=== PATIENT | female | born 1945 | race Caucasian/White ===

== ENCOUNTER 2021-06-29 07:59 | Outpatient (CLI) | payer MEDICARE, SELFPAY ==
--- NOTE | ~2021-06-29 | CT_ITS ---
EXAMINATION: CT abdomen wo/w con DATE: 06/29/2021 08:42 INDICATION: Renal mass TECHNIQUE: Computed tomography (CT) of the abdomen and pelvis was performed without and with 100 mL O mnipaque-350 intravenous contrast. Automated exposure control and iterative reconstruction technique were employed. The dose-length product was 747.18 mGy-cm. COMPARISON: 10/01/2019 FINDINGS: Multiple scattered calcified nodules in the bilateral lower lungs, the liver and spleen along with ca lcified bilateral hilar and mediastinal lymph nodes, all consistent with old granulomatous disease. H eart size is normal. No pericardial or pleural effusion. Small sliding-type hiatal hernia. Cholecyste ctomy clips the gallbladder fossa. Diffuse hepatic steatosis. Mild fatty infiltration of the pancreas . Bilateral adrenal glands are normal. Air-fluid level within a small duodenal diverticulum arising f rom the second portion of the duodenum. No interval change in a 1.3 cm heterogeneously enhancing mixe d solid and cystic mass arising from the anterior interpolar region of the left kidney consistent wit h renal cell carcinoma. No significant change in a couple 9 mm likely cysts at the upper pole of the left kidney, the more cephalad with decreased attenuation evident on the precontrast imaging and the more caudal isodense to the kidney most likely a proteinaceous/hemorrhagic cyst. Definitive assessmen t of attenuation and thereby enhancement is however limited by the small size of lesions as well as a small amount of streak and motion artifact. Visualized portions of the bowels including a portion of the appendix are normal. No pathologically enlarged abdominal lymphadenopathy. Normal caliber abdomi nal aorta with small amount of scattered atherosclerotic calcification. Mild thoracolumbar spondylosi s. IMPRESSION: 1. No interval change in a 1.3 cm enhancing left renal mass consistent with renal cell carcinoma. No evident metastatic disease. 2. Small sliding-type hiatal hernia. 3. Diffuse hepatic steatosis. Reviewed, dictated and finalized at location A. IMPRESSION: 1. No interval change in a 1.3 cm enhancing left renal mass consistent with miki al cell carcinoma. No evident metastatic disease. 2. Small sliding-type hiatal hernia. 3. Diffuse hepatic steatosis.
[2021-06-29 08:31] LABS: Estimated Glomerular Filt Rate 54
[2021-06-29 09:40] LABS: Estimated Glomerular Filt Rate 54
== END 2021-06-29 08:00 | disposition home or self-care (01) ==
LOC: ANHIMG 08:03
PROVIDERS: PCP Internal Medicine; Visit Provider Urology
DX: N28.89 Other specified disorders of kidney and ureter (principal); K44.9 Diaphragmatic hernia without obstruction or gangrene; K76.0 Fatty (change of) liver, not elsewhere classified
CPT/HCPCS: 74170; Q9967

== ENCOUNTER → 2022-08-29 12:42 | Outpatient (CLI) | payer MEDICARE, SELFPAY ==
--- NOTE | ~2022-08-29 | MM_ITS ---
EXAMINATION: MM screening mary BI w cherise HISTORY: Screening TECHNIQUE: Craniocaudal and mediolateral oblique 3-D tomosynthesis images were obtained and synthetic 2-D images were generated. CAD analysis was submitted and interpreted. COMPARISON: No prior mammogram is available for comparison at this institution. BREAST PARENCHYMAL COMPOSITION: Breast composed of scattered areas of fibroglandular density FINDINGS: There is a right breast mass in the upper outer quadrant posteriorly near the pectoralis mu scle. There is a focal asymmetry laterally in the left breast on CC view. There are no suspicious ricardo cifications or architectural distortion. IMPRESSION: 1. Right breast mass, upper outer quadrant posteriorly and left breast asymmetry laterally on CC view . 2. Recommend comparison to previous outside mammograms. BI-RADS Category 0: Incomplete: Needs additional imaging evaluation. Reviewed, dictated and finalized at location A. IMPRESSION: 1. Right breast mass, upper outer quadrant posteriorly and left breast asymmetr y laterally on CC view. 2. Recommend comparison to previous outside mammograms. BI-RADS Category 0: Incomplete: Needs additional imaging evaluation.
== END ==
PROVIDERS: PCP Internal Medicine; Visit Provider Internal Medicine
DX: Z12.31 Encounter for screening mammogram for malignant neoplasm of breast (principal); R92.8 Other abnormal and inconclusive findings on diagnostic imaging of breast
CPT/HCPCS: 77063; 77067

== ENCOUNTER → 2022-09-19 09:54 | Outpatient (CLI) | payer MEDICARE, SELFPAY ==
--- NOTE | ~2022-09-19 | DEXA_ITS ---
Bone Density Report Name: MISSY THOMAS Age: 76 Sex: Female Ethnicity: White Date of : 1945 Indication: postmenopausal; screening for osteoporosis; parental hip fracture; hysterectomy; rheumatoid arthritis; secondary osteoporosis; Referring Provider: ANUEL, LUIS May Study: Bone densitometry was performed. Exam Date: September 19, 2022 Accession number: [id number] Bone Density: Region BMD T-score Z-score Classification AP Spine (L1-L4) 0.840 -1.9 0.7 Osteopenia Femoral Neck (Left) 0.555 -2.6 -0.4 Osteoporosis Total Hip (Left) 0.746 -1.6 0.4 Osteopenia Femoral Neck (Right) 0.545 -2.7 -0.5 Osteoporosis Total Hip (Right) 0.720 -1.8 0.2 Osteopenia Total Hip Mean 0.733 -1.7 0.3 Osteopenia World Health Organization criteria for BMD impression classify patients as: Normal (T-score at or above -1.0), Osteopenia (T-score between -1.0 and -2.5), or Osteoporosis (T-score at or below -2.5). 10-year Fracture Risk: FRAX not reported because: Some T-score for Spine Total or Hip Total or Femoral Neck at or below -2.5 Clinical Information Provided by Patient: Parent has had a hip fracture Has rheumatoid arthritis Has secondary osteoporosis Has used the following medications: Vitamin D Has the following medical conditions: Hysterectomy Patient maximum height was 59.7 Menopause Age: 35 No regular weight bearing exercise Drinks caffeinated beverages Onset of menses at age 10 Number of children 1 Impression: The patient has osteoporosis, based on the Right Femoral Neck T-score. The patient has risk factors, including: parental hip fracture. Discussion: INCREASED RISK OF FRACTURE. BONE DENSITY IS UNDESIRABLY LOW AT ONE OR MORE SKELETAL SITES, CONSISTENT WITH POSTMENOPAUSAL OSTEOPOROSIS. This patient's lowest T-score meets the World Health Organization's (WHO) criteria for osteoporosis at one or more sites (T-score -2.5 or below). In untreated patients, the risk of osteoporotic fracture increases approximately two-fold for each 1.0 SD decrease in T-score. Low bone density is not the only risk factor for fracture; also consider factors such as patient's age, frailty or poor health, risk of falling, risk of injury, previous osteoporotic fracture, family history of osteoporosis, cigarette smoking, low body weight, etc. Not everyone with low bone mineral density has osteoporosis; osteomalacia and other metabolic bone disorders should also be considered. Patients who have osteoporosis should be evaluated for specific diseases and conditions (secondary causes) that may cause or contribute to bone loss. The [place] Association of Clinical Endocrinologists (AACE) and National Osteoporosis Foundation (NOF) recommend pharmacologic intervention for all postmenopausal women whose T-score is in this range. The patient should follow
== END ==
PROVIDERS: PCP Internal Medicine; Visit Provider Internal Medicine
DX: Z78.0 Asymptomatic menopausal state (principal); M85.89 Other specified disorders of bone density and structure, multiple sites; M81.6 Localized osteoporosis [Lequesne]
CPT/HCPCS: 77080

== ENCOUNTER 2023-09-03 06:36 | Day surgery (SDC) | payer MEDICARE, SELFPAY ==
[2023-08-14 14:01] VITALS: BMI 30.3
[2023-08-15 11:10] VITALS: BMI 64.5
--- NOTE | 2023-09-03 06:51 | WPDANESEPPF ---
Anes - Initial Pre Proc Eval Procedure: Operation Date: 09/03/23 08:30 Proposed Procedures p Neoplasm Screening Colonoscopy - Ghassan Bonilla MD Date/Time: 09/03/23 06:51 Surgeon: Ghassan Bonilla MD Pre Op Diagnosis: Z12.11 Screening Neoplasm of Colon Patient Data Age: 77 Gender: F Height: 1.52 m Weight: 150 kg Allergies Allergy/AdvReac Type Severity Reaction Status Date / Time No Known Allergies Allergy Verified 09/03/23 07:03 Home Medications Medication Instructions Recorded Confirmed Type cyclobenzaprine 10 mg tablet 10 mg PO BID 08/15/23 09/03/23 History ergocalciferol (vitamin D2) 1,250 1 unit PO WEEKLY 08/15/23 09/03/23 History mcg (50,000 unit) capsule ferrous sulfate 325 mg (65 mg 325 mg PO BID 08/15/23 09/03/23 History iron) tablet (FeroSul) gabapentin 300 mg capsule 300 mg PO TID 08/15/23 09/03/23 History naproxen 500 mg tablet 500 mg PO DAILY 08/15/23 09/03/23 History tramadol 50 mg tablet 50 mg PO BID 08/15/23 09/03/23 History Patient hx anesthesia problems: none Family hx anesthesia problems: none Results Review: All pre-operative results and documents have been reviewed as part of the pre-operative evaluation. [facility] Surgical History Surgical History (Updated 09/03/23 @ 06:52 by Chuy Yip DO) History of History of cholecystectomy History of hysterectomy History of neck surgery History of tonsillectomy Social History Social History Living arrangements: with family Spiritual care concerns: No Anes - Eval Final PreProcedure Day of Procedure 09/03/23 06:51 Patient weight: overweight Heart: regular rate and rhythm Lungs: clear to auscultation Airway: Mallampati scale class II Neurological: alert and oriented Last oral intake: >/= 8 hours ASA classification: II Emergent: no Anesthetic plan: proceed Anesthesia type and monitoring: general GIVS and standard monitoring Results Review: All pre-operative results and documents have been reviewed as part of the pre-operative evaluation. Informed Consent: The patient's anesthetic plan and its attendant risks and benefits were discussed with the patient/family/POA. Questions were solicited and answers provided to the satisfaction of the patient/family/POA.
[2023-09-03 07:00] VITALS: BP 144/77; PULSE 91; RESP 20; TEMP 36.5; O2SAT 100
[2023-09-03] MEDS: LACTATED RINGERS 1,000 ML 150 ML IV CONT (07:20)
[2023-09-03 08:28] VITALS: BP 131/62; PULSE 89; RESP 18; O2SAT 100
[2023-09-03 08:38] VITALS: BP 137/73; PULSE 81; RESP 17; O2SAT 100
[2023-09-03 08:48] VITALS: BP 130/67; PULSE 78; RESP 16; O2SAT 99
--- NOTE | 2023-09-03 13:46 | WPDANESPN ---
Anes - Prog Note Post-Op Date/Time: 09/03/23 13:46 Cardiovascular status: normal Respiratory status: normal Airway patency: baseline Mental status: baseline Post-Op hydration status: normal Vital Signs: Last Vital Signs Temp 36.5 C 09/03/23 07:00 Pulse 78 09/03/23 08:48 Resp 16 09/03/23 08:48 BP 130/67 09/03/23 08:48 Pulse Ox 99 09/03/23 08:48 O2 Del Method Room Air 09/03/23 08:48 Pain Score (VAS): 0 I/O: Intake & Output 09/02/23 09/03/23 09/03/23 23:59 07:59 15:59 Intake Total 900 Balance 900 Post-procedural complaints: none Patient Feedback: Patient satisfied with anesthetic care. Other Findings: Patient vital signs back to baseline. Patient denies nausea and vomiting. Patient's pain under control. Patient OK for discharge.
--- NOTE | 2023-09-17 14:56 | PM.HPGS ---
History of Present Illness History of Present Illness Consent: Risks, benefits, and alternatives have been discussed and questions answered. Patient agrees to proceed with procedure. Chief complaint: Z12.11 Screening Neoplasm of Colon Narrative: Niya Hodgson is a 77 year old female referred for colon cancer screening. Review of Systems Review of Systems: All systems reviewed & are unremarkable except as noted in HPI and below PMFSH Surgical History Surgical History History of History of cholecystectomy History of hysterectomy History of neck surgery History of tonsillectomy Social History Social History Living arrangements: with family Spiritual care concerns: No Meds Home Medications and Allergies Home Medications Medication Instructions Recorded Confirmed Type cyclobenzaprine 10 mg tablet 10 mg PO BID 08/15/23 09/03/23 History ergocalciferol (vitamin D2) 1,250 1 unit PO WEEKLY 08/15/23 09/03/23 History mcg (50,000 unit) capsule ferrous sulfate 325 mg (65 mg 325 mg PO BID 08/15/23 09/03/23 History iron) tablet (FeroSul) gabapentin 300 mg capsule 300 mg PO TID 08/15/23 09/03/23 History naproxen 500 mg tablet 500 mg PO DAILY 08/15/23 09/03/23 History tramadol 50 mg tablet 50 mg PO BID 08/15/23 09/03/23 History Allergies Allergy/AdvReac Type Severity Reaction Status Date / Time No Known Allergies Allergy Verified 09/03/23 07:03 Exam Const: General: alert Orientation/consciousness: patient oriented x3 Resp: Auscultation: clear to auscultation bilaterally Cardio: Rhythm: regular rhythm GI: GI Palp: Yes Soft to palpation and No Tenderness to palpation present (GI) Neuro: General: patient oriented x3 Assessment and Plan Assessment and plan (1) Colon cancer screening: Code(s): Z12.11 - Encounter for screening for malignant neoplasm of colon Status: Acute Assessment and Plan: Colonoscopy with possible biopsy or polypectomy or cautery or injection of substances.
== END 2023-09-03 09:07 | disposition home or self-care (01) ==
PROVIDERS: PCP Internal Medicine; Visit Provider Internal Medicine Gastroenterology
PROC: 0DJD8ZZ Inspection of Lower Intestinal Tract, Via Natural or Artificial Opening Endoscopic (ICD-10-PCS; CPT 45378; principal; 2023-09-03 08:30)
DX: Z12.11 Encounter for screening for malignant neoplasm of colon (principal); K57.30 Diverticulosis of large intestine without perforation or abscess without bleeding; K64.8 Other hemorrhoids
CPT/HCPCS: 45378

== ENCOUNTER 2023-11-28 07:05 | Outpatient (CLI) | payer MEDICARE, SELFPAY ==
--- NOTE | ~2023-11-28 | CT_ITS ---
EXAMINATION: CT abdomen wo/w con DATE: 11/28/2023 08:01 INDICATION: Renal mass TECHNIQUE: Computed tomography (CT) of the abdomen was performed without and subsequently with 100 CC Omnipaque 350 intravenous contrast. Automated exposure control and iterative reconstruction techniqu e were employed. Exam dose: 449.25 mGy-cm total exam DLP. COMPARISON: 06/29/2021 CT abdomen without and with IV contrast material 09/2019 CT abdomen without and with IV contrast material FINDINGS: There is interval enlargement of the heterogeneously enhancing anterior lower pole left miki al mass, currently measuring up to 1.9 cm compared to approximately 1.5 cm previously. This is most l ikely left renal cell carcinoma. There are 2 stable upper pole right renal probable cysts, one likely proteinaceous or hemorrhagic. There is an indeterminate approximately approximately 4.5 mm hypoenhancing lesion at the anterior asp ect of the mid right kidney, increased from 2.5 mm dimension on 06/29/2021 too small to definitively ch aracterize. This may be a small cyst. Consider MRI renal examination or follow-up CT imaging as clini sanna appropriate. Multiple bilateral calcified pulmonary granulomas and bilateral calcified hilar and mediastinal lymph nodes, consistent with old pulmonary granulomatous disease. No infiltrate or consolidation is noted in the lower lung zones. Normal heart size. No pericardial or pleural effusion. Small sliding hiatal hernia. Status post cholecystectomy. Diffuse hepatic steatosis. No hepatic, splenic, pancreatic or adrenal sp phoenix-occupying mass lesion. There is atherosclerotic calcification but normal caliber of the abdominal aorta. No intraperitoneal or retroperitoneal mass lesion or adenopathy or ascites is noted than previously reported renal mass lesions. There is a prominent amount of fecal material throughout the included:. No bowel obstruction or intra peritoneal free air is detected. No suspicious osteolytic or osteoblastic lesions. IMPRESSION: Mild interval enlargement of left renal mass lesion, most likely renal cell carcinoma Mild interval enlargement of hypoattenuating lesion of right kidney, measuring 4.5 mm compared to 2.5 mm on 06/29/2021, too small to definitively characterize. This may be a small cyst. Consider follow-up CT imaging or MR as appropriate clinically. Reviewed, dictated and finalized at Location A. Reviewed, dictated and finalized at location B. 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 This may be a small cyst. Consider follow-up CT imaging or MR as appropriate cl inically.
[2023-11-28 07:54] LABS: Estimated Glomerular Filt Rate 53
== END 2023-11-28 07:06 | disposition home or self-care (01) ==
LOC: ANHIMG 07:14
PROVIDERS: PCP Internal Medicine; Visit Provider Urology
DX: N28.89 Other specified disorders of kidney and ureter (principal)
CPT/HCPCS: 74170; Q9967

== ENCOUNTER 2024-02-01 06:49 | Emergency (ER) | payer MEDICARE, SELFPAY ==
--- NOTE | ~2024-02-01 | CT_ITS ---
EXAMINATION: CT abdomen pelvis w con DATE: 02/01/2024 08:26 INDICATION: Left upper quadrant abdominal pain. TECHNIQUE: Computed tomography (CT) of the abdomen and pelvis was performed with 100 mL Omnipaque 350 intravenous contrast. Automated exposure control and iterative reconstruction technique were employe d. The dose-length product was 562.24 mGy-cm. COMPARISON: CT abdomen 11/28/2023 FINDINGS: Calcified pulmonary nodules and calcified hilar lymph nodes are consistent with old granulo matous disease. There is mild atelectasis bilaterally. No pleural effusion. The heart size is normal. No pericardial effusion. There is a small sliding hiatal hernia. The liver is normal. Calcifications in the spleen are consistent with old granulomatous disease. The pancreas and adrenal glands are nor mal. There are cysts in the kidneys measuring up to 6 mm on the right. There are changes of ablation of anterolateral left kidney. There is a small volume of hematoma in the left retroperitoneum. There is gas in the bladder lumen, likely from recent instrumentation. There is diverticulosis of the colon without evidence of diverticulitis. There are no dilated loops of bowel. The appendix is normal. The re is calcified atherosclerosis of the aorta and many of the other arteries. There are no pathologica lly enlarged lymph nodes. There is no free intraperitoneal fluid. There is mild thoracic and lumbar s pondylosis. IMPRESSION: 1. Ablation involving anterolateral left kidney. Small volume of hematoma in left retroperitoneum. Reviewed, dictated and finalized at location A. IMPRESSION: 1. Ablation involving anterolateral left kidney. Small volume of hematoma in le ft retroperitoneum.
--- NOTE | ~2024-02-01 | XR_ITS ---
EXAMINATION: XR chest 2V DATE: 02/01/2024 07:30 INDICATION: Generalized weakness. Nausea. Constipation. TECHNIQUE: Frontal and lateral views of the chest were obtained. COMPARISON: CT abdomen and pelvis 11/28/2023 FINDINGS: The lung volumes are small. There is mild atelectasis at right lung base. Calcified right l anali nodules and calcified right hilar lymph nodes are consistent with old granulomatous disease. No p leural effusion or pneumothorax. The heart size is normal. There are changes of cholecystectomy. IMPRESSION: 1. Small lung volumes with mild atelectasis at right lung base. Reviewed, dictated and finalized at location A.
[2024-02-01 06:51] VITALS: BP 151/72; PULSE 81; RESP 15; TEMP 35.8; O2SAT 99
--- NOTE | 2024-02-01 06:58 | ECG_ITS ---
Measurements Intervals [place] Rate: 79 P: 45 MS: 133 QRS: 8 QRSD: 86 T: 65 QT: 373 QTc: 429 Interpretive Statements SINUS RHYTHM LOW-VOLTAGE NONSPECIFIC ST & T-WAVE ABNORMALITY BORDERLINE ECG NO PREVIOUS ECG AVAILABLE FOR COMPARISON Electronically Signed On 02-01-2024 7:49:40 CDT by Isaac Forbes M.D.
[2024-02-01 07:00] VITALS: BP 151/73; PULSE 81; RESP 16; O2SAT 98
[2024-02-01 07:11] LABS: Basophils Percent Auto 0.4 % (0.2-1.2); Eosinophils Absolute Auto 0.2 K/mm3 (0-0.3); Eosinophils Percent Auto 3.9 % (0-4.4); Hemoglobin 11.6 g/dL (12.0-15.0); Immature Granulocyte Absolute 0.02 K/mm3 (0.00-0.031); Immature Granulocyte Percent A 0.4 % (0-0.5); Mean Corpuscular HGB Conc 32.2 g/dl (32-36); Mean Corpuscular Hemoglobin 30.1 pg (26-34); Mean Corpuscular Volume 93.3 fl (80-100); Mean Platelet Volume 10.2 fl (7.4-10.4); Monocytes Absolute Auto 0.6 K/mm3 (0.1-0.6); Monocytes Percent Auto 13.9 % (2.6-8.5); Neutrophils Absolute Auto 3.2 K/mm3 (1.3-6.7); Neutrophils Percent Auto 68.4 % (45.5-73.1); Platelet Count Result 153 k/mm3 (150-375); Red Blood Count 3.86 M/mm3 (4.2-5.4); Red Cell Distribution Width 12.9 % (11.5-14.5); White Blood Count 4.6 K/mm3 (4.5-10.0)
--- NOTE | 2024-02-01 07:22 | ED.GENADULT ---
HPI - General Adult General Chief complaint: Weakness Stated complaint: weakness Time Seen by Provider: 02/01/24 06:55 History of Present Illness HPI narrative: 78-year-old female presenting to the emergency department for evaluation for increased falls, increased generalized weakness and some abdominal discomfort. Patient states that she had her 1st fall on Sunday. Patient did have a renal biopsy done at [facility] and reports that even after the procedure she has had multiple falls. Patient denies striking head denies loss consciousness. Patient denies any pain or injury from the falls. Patient does complain decreased p.o. intake nausea without vomiting and decreased bowel movements. Related Data Home Medications Medication Instructions Recorded Confirmed cyclobenzaprine 10 mg tablet 10 mg PO BID 08/15/23 09/03/23 ergocalciferol (vitamin D2) 1,250 1 unit PO WEEKLY 08/15/23 09/03/23 mcg (50,000 unit) capsule ferrous sulfate 325 mg (65 mg 325 mg PO BID 08/15/23 09/03/23 iron) tablet (FeroSul) gabapentin 300 mg capsule 300 mg PO TID 08/15/23 09/03/23 naproxen 500 mg tablet 500 mg PO DAILY 08/15/23 09/03/23 tramadol 50 mg tablet 50 mg PO BID 08/15/23 09/03/23 Allergies Allergy/AdvReac Type Severity Reaction Status Date / Time No Known Allergies Allergy Verified 09/03/23 07:03 Review of Systems Review of Systems: All systems reviewed & are unremarkable except as noted in HPI and below PMFSH Surgical History Surgical History History of History of cholecystectomy History of hysterectomy History of neck surgery History of tonsillectomy Social History Social History Living arrangements: with family Spiritual care concerns: No Exam Narrative: APPEARANCE: Well appearing, no pain, no distress, well-nourished. HEAD: normocephalic, atraumatic. EYES: PERRLA/EOMI, conjunctivae clear. NOSE: Normal no drainage NECK: Supple. No adenopathy, no masses. RESPIRATORY: Airway patent, respirations nonlabored. Clear to auscultation bilaterally, no rales, rhonchi, wheezing. CARDIOVASCULAR: Regular rate and rhythm without murmurs rubs or gallops. ABDOMINAL: diffuse abdominal tenderness to palpation MUSCULOSKELETAL: Moves all extremities. Strength/ROM intact, No edema, No calf tenderness. NEURO: Alert. Cranial nerves II through XII intact. Grossly intact SKIN: Warm, dry. Normal Color Course Course Emergency Course: patient was discharged to home with outpatient follow-up. Vital Signs Vital signs: Vital Signs Temperature 96.5 F L 02/01/24 06:51 Pulse Rate 81 02/01/24 06:51 Respiratory Rate 15 02/01/24 06:51 Blood Pressure 151/72 H 02/01/24 06:51 Pulse Oximetry 99 02/01/24 06:51 Oxygen Delivery Room Air 02/01/24 06:51 Temperature 96.5 F L 02/01/24 06:51 Pulse Rate 80 02/01/24 10:45 Respiratory Rate 16 02/01/24 10:45 Blood Pressure 170/60 H 02/01/24 10:45 Pulse Oximetry 98 02/01/24 10:45 Oxygen Delivery Room Air 02/01/24 06:51 Medical Decision Making [facility] Narrative Medical decision making narrative: 78-year-old female presenting to the emergency department for evaluation for increased generalized weakness, frequent falls and abdominal discomfort. Patient was ordered IV fluids, IV Zofran. Patient declined any medications for pain control. Labs CT were also ordered. Patient reports he does feel improved with treatment. Patient is afebrile with no leukocytosis and a stable hemoglobin at 11.6. No acute abnormalities on the patient's CMP. Patient did have some ketones in her urine but no underlying evidence infection and patient was negative for influenza RSV and for COVID. Chest x-ray showed atelectasis and CT scan did show postop changes with no other acute abnormalities. Differential Diagnosis Differential Diagnosis: postop com
[2024-02-01 07:23] LABS: Alanine Aminotransferase 39 U/L (6-35); Albumin Level 3.5 g/dL (3.5-5.1); Alkaline Phosphatase 63 U/L (38-126); Anion Gap 2 mmol/L (4-12); Aspartate Amino Transferase 38 U/L (14-36); Bilirubin,Total 1.7 mg/dL (0.2-1.3); Blood Urea Nitrogen 12 mg/dL (7-17); Calcium 8.7 mg/dL (8.4-10.2); Carbon Dioxide 29 mmol/L (22-30); Chloride 105 mmol/L (98-107); Estimated CRCL calculation 41 ml/min; Estimated Glomerular Filt Rate > 60; Glucose 99 mg/dL (65-110); Potassium 3.5 mmol/L (3.4-5.0); Sodium 136 mmol/L (137-145)
[2024-02-01 08:00] VITALS: BP 156/83; PULSE 80; RESP 16; O2SAT 99
[2024-02-01 08:08] LABS: Appearance Urine Clear (Clear); Bacteria Urine None Seen /hpf; Bilirubin Urine Negative (Negative); Blood Urine 2+ (Negative); Color Urine Yellow (Yellow); Glucose Urine UA Negative (Negative); Ketones Urine 1+ mg/dL (Negative); Leukocyte Esterase Ur Negative LEU/UL (Negative); Nitrate Urine Negative (Negative); Non Pathogenic Casts 0-2; Protein Urine Negative (Negative); Specific Grav Ur 1.007 (1.001-1.035); Squamous Epithelial Cell Urine None Seen /hpf (Few); WBC Urine 0-5 /hpf (0-3)
[2024-02-01] MEDS: SODIUM CHLORIDE 0.9% IV 1,000 ML 999 ML IV CONT (08:10)
[2024-02-01 08:35] LABS: Influenza A QL RT-PCR Negative (Negative); Influenza B QL RT-PCR Negative (Negative); RSV RNA, RT-PCR Negative (Negative); SARS-CoV-2 RNA PCR Negative (Negative)
[2024-02-01 08:38] LABS: Add Urine Microscopic? YES
[2024-02-01 09:00] VITALS: BP 182/75; PULSE 100; RESP 14; O2SAT 100
[2024-02-01] MEDS: MORPHINE SULFATE (*CRX) 2 MG/ML INJ IV PUSH (09:24)
[2024-02-01 10:00] VITALS: BP 175/67; PULSE 89; RESP 14; O2SAT 97
[2024-02-01 10:45] VITALS: BP 170/60; PULSE 80; RESP 16; O2SAT 98
== END 2024-02-01 10:45 | disposition home or self-care (01) ==
PROVIDERS: Emergency Medicine; Emergency Provider Emergency Medicine; PCP Internal Medicine
DX: R53.1 Weakness (principal); W19.XXXA Unspecified fall, initial encounter; Z91.81 History of falling; Z20.822 Contact with and (suspected) exposure to COVID-19
CPT/HCPCS: 36415; 71046; 74177; 80053; 81001; 85025; 87637; 93005; 96361; 96374; 99284; J2270; J7030; Q9967

== ENCOUNTER 2024-02-11 09:10 | Emergency (ER) | payer MEDICARE, SELFPAY ==
--- NOTE | ~2024-02-11 | XR_ITS ---
Left Shoulder Technique: AP and scapular Y views were obtained. Clinical History: Pain Findings: No fracture or dislocation is seen. Osseous alignment is anatomic. The glenohumeral and acr omioclavicular joint spaces are preserved. Soft tissues are unremarkable. Impression: Unremarkable left shoulder radiographs. Reviewed, dictated and finalized at [facility]. Impression: Unremarkable left shoulder radiographs.
[2024-02-11 09:25] VITALS: BP 140/100; PULSE 84; RESP 16; TEMP 36.2; O2SAT 98
--- NOTE | 2024-02-11 09:32 | ECG_ITS ---
SEE SCANNED COPY FOR CONFIRMED REPORT MTDD
--- NOTE | 2024-02-11 10:44 | ED.EXTPRO ---
HPI - Extremity Problem General Chief complaint: Extremity Problem,Nontraumatic Stated complaint: left upper arm pain Time Seen by Provider: 02/11/24 09:33 Source: patient Mode of arrival: ambulatory Limitations: no limitations History of Present Illness HPI Narrative: Patient is an 78-year-old female who presents the ED with report of left shoulder and left-sided neck pain. Patient reports pain has been constant for the last 4 days, worse with movement of her arm. She denies any recent injury or fall. She has been taking Tylenol, naproxen, tramadol without much relief. States she has lost sleep over the pain. Denies CP, SOB. Denies numbness/tingling. Related Data Home Medications Medication Instructions Recorded Confirmed cyclobenzaprine 10 mg tablet 10 mg PO BID 08/15/23 09/03/23 ergocalciferol (vitamin D2) 1,250 1 unit PO WEEKLY 08/15/23 09/03/23 mcg (50,000 unit) capsule ferrous sulfate 325 mg (65 mg 325 mg PO BID 08/15/23 09/03/23 iron) tablet (FeroSul) gabapentin 300 mg capsule 300 mg PO TID 08/15/23 09/03/23 naproxen 500 mg tablet 500 mg PO DAILY 08/15/23 09/03/23 tramadol 50 mg tablet 50 mg PO BID 08/15/23 09/03/23 Allergies Allergy/AdvReac Type Severity Reaction Status Date / Time No Known Allergies Allergy Verified 02/11/24 09:28 Review of Systems Review of Systems: CONSTITUTIONAL: Denies fever, chills, or sweats. CARDIOVASCULAR: Denies chest pain RESPIRATORY: Denies dyspnea. GASTROINTESTINAL: Denies abdominal pain, nausea, vomiting. MUSCULOSKELETAL: See HPI. NEUROLOGIC: Denies headache, dizziness, numbness, or weakness. All systems reviewed & are unremarkable except as noted in HPI and below PMFSH Surgical History Surgical History History of History of cholecystectomy History of hysterectomy History of neck surgery History of tonsillectomy Social History Social History Living arrangements: with family Spiritual care concerns: No Exam Narrative: GENERAL: Elderly, frail, mildly uncomfortable appearing, non-toxic. HEAD: Normocephalic, atraumatic. RESPIRATORY: Airway patent, respirations nonlabored. Clear to auscultation bilaterally, no rales, rhonchi, wheezing. CARDIOVASCULAR: Regular rate and rhythm without murmurs, rubs, or gallops. MUSCULOSKELETAL: Moves all extremities. No gross deformities. Tenderness to palpation to left anterior shoulder and left upper trapezius region, reproducing pain. Discomfort reported with any movement of left upper extremity. No chest wall tenderness to palpation. Sensation is intact throughout left upper extremity. Equal sql server architect strength bilaterally. No midline cervical or thoracic spinal tenderness. SKIN: Warm, dry, normal color. NEURO: A&O X3. Speech clear. PSYCHIATRIC: Anxious. Normal interaction. Course Vital Signs Vital signs: Vital Signs Temperature 97.2 F L 02/11/24 09:25 Pulse Rate 84 02/11/24 09:25 Respiratory Rate 16 02/11/24 09:25 Blood Pressure 140/100 H 02/11/24 09:25 Pulse Oximetry 98 02/11/24 09:25 Temperature 97.2 F L 02/11/24 09:25 Pulse Rate 78 02/11/24 11:09 Respiratory Rate 18 02/11/24 11:09 Blood Pressure 180/73 H 02/11/24 11:09 Pulse Oximetry 97 02/11/24 11:09 MDM - Extremity (Nontraumatic) MDM Narrative Medical decision making narrative: Patient presented to ED with 4 day history of atraumatic left shoulder pain. Patient?s injury is consistent with musculoskeletal etiology. Pain worse with movement, palpable tenderness to palpation reproducing pain on exam. No signs of neurologic or vascular compromise on physical examination. Compartments are soft without signs of compartment syndrome. XR L shoulder unremarkable. EKG without concerning ischemic changes. I have low suspicion for ACS at this time. Pain has been ongoing for 4 days, again repro
[2024-02-11] MEDS: methylPREDNISolone SOD SUCC 125 MG VIAL IM (11:04)
[2024-02-11] MEDS: diazePAM INJ (*CRX) 10 MG/2 ML SYRINGE 2 MG IM (11:04)
[2024-02-11] MEDS: HYDROcodone/acetaminophen (*CRX) 5-325 MG TABLET 1 TAB PO (11:04)
[2024-02-11 11:09] VITALS: BP 180/73; PULSE 78; RESP 18; O2SAT 97
[2024-02-11] MEDS: methocarbamoL 500 MG TABLET 1000 MG PO (12:19)
== END 2024-02-11 13:29 | disposition home or self-care (01) ==
PROVIDERS: Emergency Provider Physician Assistant; PCP Internal Medicine
DX: S16.1XXA Strain of muscle, fascia and tendon at neck level, initial encounter (principal); S46.912A Strain of unspecified muscle, fascia and tendon at shoulder and upper arm level, left arm, initial encounter; Z90.49 Acquired absence of other specified parts of digestive tract; Z90.710 Acquired absence of both cervix and uterus; X58.XXXA Exposure to other specified factors, initial encounter
CPT/HCPCS: 73030; 93005; 96372; 99284; A4565; A9270; J2919; J3360

== ENCOUNTER 2024-05-05 10:30 | Outpatient (CLI) | payer MEDICARE, SELFPAY ==
--- NOTE | ~2024-05-05 | MR_ITS ---
EXAMINATION: MR hip RT wo con DATE: 05/05/2024 13:04 INDICATION: Right hip pain. TECHNIQUE: Magnetic resonance imaging (MRI) of the right hip was performed without intravenous contra st. COMPARISON: Pelvis and right hip radiographs 04/23/2024 FINDINGS: Bones/cartilage: There is 5 degrees levocurvature of lumbar spine. No fracture. The femoral head/neck junctions are no rmal. The hips demonstrate tiny osteophytes. Small [id number] images of right hip demonstrate part ial-thickness cartilage loss. Labrum: There are tears of the bilateral acetabular dianne. Fluid: There is no joint effusion. There is mild bilateral trochanteric bursitis. Soft tissues: There is mild bilateral gluteus minimus and gluteus medius tendinopathy. The iliopsoas tendons are no rmal. There is moderate tendinopathy of the hamstring origins bilaterally. IMPRESSION: 1. Mild osteoarthritis of the hips. Reviewed, dictated and finalized at location E.
== END 2024-05-05 10:31 | disposition home or self-care (01) ==
PROVIDERS: PCP Internal Medicine; Visit Provider Orthopaedic Surgery
DX: M16.0 Bilateral primary osteoarthritis of hip (principal)
CPT/HCPCS: 73721

== ENCOUNTER 2024-06-09 13:37 | Outpatient (CLI) | payer MEDICARE, SELFPAY ==
--- NOTE | ~2024-06-09 | CT_ITS ---
EXAMINATION: CT abdomen wo/w con DATE: 06/09/2024 14:25 INDICATION: Kidney mass. TECHNIQUE: Computed tomography (CT) of the abdomen was performed without and with 100 mL Omnipaque 35 0 intravenous contrast. Automated exposure control and iterative reconstruction technique were employ ed. The dose-length product was 518.56 mGy-cm. COMPARISON: CT abdomen and pelvis 02/01/2024 FINDINGS: The visualized portions of the lung bases demonstrate calcified pulmonary nodules and calci fied hilar mediastinal lymph nodes, consistent with old granulomatous disease. There is mild atelecta sis bilaterally. No pleural effusion. The heart size is normal. No pericardial effusion. There are co ronary artery calcifications. There is a small sliding hiatal hernia. Calcifications in the liver and spleen are consistent with old granulomatous disease. There are changes of cholecystectomy. The panc reas and adrenal glands are normal. There are cysts in right kidney measuring up to 10 mm. There is a 4 mm stone in left kidney. There are changes of focal left kidney ablation with interval decrease in size of the ablated volume. There is diverticulosis of the colon without evidence of diverticulitis. There are no dilated loops of bowel. There are no pathologically enlarged lymph nodes. There is no f ree intraperitoneal fluid. There is mild thoracic and lumbar spondylosis. IMPRESSION: 1. Focal ablation of left kidney. No residual or recurrent malignancy. Reviewed, dictated and finalized at location A.
[2024-06-09 14:14] LABS: Estimated Glomerular Filt Rate > 60
== END 2024-06-09 13:38 | disposition home or self-care (01) ==
PROVIDERS: PCP Internal Medicine; Visit Provider Urology
DX: N28.89 Other specified disorders of kidney and ureter (principal)
CPT/HCPCS: 74170; Q9967

== ENCOUNTER 2024-07-08 10:45 | Outpatient (CLI) | payer MEDICARE, SELFPAY ==
--- NOTE | ~2024-07-08 | MR_ITS ---
EXAMINATION: MR cervical spine wo con DATE: 07/08/2024 11:41 INDICATION: Disease of spinal cord, unspecified. TECHNIQUE: Magnetic resonance imaging (MRI) of the cervical spine was performed without intravenous c ontrast. COMPARISON: None. FINDINGS: Bone alignment is normal. There are changes of anterior fusion procedure at C3-C4 with inte rbody bone graft and anterior plate and screws. There is severely decreased disc height at C5-C6. The re is developmental anterior fusion at C7-T1. The spinal cord signal intensity is normal, but motion artifact decreases sensitivity. The following disc levels are specifically discussed: C2-C3: The disc does not extend beyond the endplate margin. There is mild bilateral uncovertebral adan nt osteoarthritis. There is severe bilateral facet joint osteoarthritis. There is mild bilateral neur al foraminal stenosis. There is no central canal stenosis. C3-C4: There is mild right uncovertebral joint hypertrophy. There is mild left facet joint hypertroph y. There is mild left neural foraminal stenosis. There is no central canal stenosis. C4-C5: There is a central extrusion. There is moderate bilateral uncovertebral joint osteoarthritis. There is moderate right and severe left facet joint osteoarthritis. There is mild right and moderate left neural foraminal stenosis. There is mild central canal stenosis. C5-C6: The disc is bulging. There is severe bilateral uncovertebral joint osteoarthritis. There is mo derate bilateral facet joint osteoarthritis. There is severe right and mild left neural foraminal dena nosis. There is mild central canal stenosis. C6-C7: The disc is bulging. There is mild right and moderate left uncovertebral joint osteoarthritis. There is moderate bilateral facet joint osteoarthritis. There is mild bilateral neural foraminal dena nosis. There is mild central canal stenosis. C7-T1: The disc does not extend beyond the endplate margin. There is no uncovertebral joint osteoarth ritis. There is no facet joint osteoarthritis. There is no neural foraminal stenosis. There is no cassius tral canal stenosis. IMPRESSION: 1. Severe cervical spondylosis. 2. Anterior fusion procedure at C3-C4. Reviewed, dictated and finalized at location A.
== END 2024-07-08 10:46 | disposition home or self-care (01) ==
LOC: MICIMG 10:46
PROVIDERS: PCP Internal Medicine; Visit Provider Orthopaedic Surgery
DX: M47.812 Spondylosis without myelopathy or radiculopathy, cervical region (principal); Z98.1 Arthrodesis status
CPT/HCPCS: 72141

== ENCOUNTER 2024-11-14 13:09 | Outpatient (CLI) | payer MEDICARE, SELFPAY ==
--- NOTE | ~2024-11-14 | DEXA_ITS ---
Bone Density Report Name: MISSY THOMAS Age: 78 Sex: Female Ethnicity: White Date of : 1945 Indication: postmenopausal; screening for osteoporosis; parental hip fracture; hysterectomy; rheumatoid arthritis; Referring Provider: ANUEL, LUIS May Study: Bone densitometry was performed. Exam Date: November 14, 2024 Accession number: [id number] Bone Density: Region BMD T-score Z-score Classification AP Spine(L1-L4) 0.831 -2.0 0.8 Osteopenia Femoral Neck (Left) 0.553 -2.7 -0.3 Osteoporosis Total Hip (Left) 0.788 -1.3 0.8 Osteopenia Femoral Neck (Right) 0.547 -2.7 -0.4 Osteoporosis Total Hip (Right) 0.766 -1.4 0.7 Osteopenia Femoral Neck Mean 0.550 -2.7 -0.3 Osteoporosis Total Hip Mean 0.777 -1.4 0.8 Osteopenia World Health Organization criteria for BMD impression classify patients as: Normal (T-score at or above -1.0), Osteopenia (T-score between -1.0 and -2.5), or Osteoporosis (T-score at or below -2.5). 10-year Fracture Risk: FRAX not reported because: Some T-score for Spine Total or Hip Total or Femoral Neck at or below -2.5 Treated for osteoporosis Clinical Information Provided by Patient: Parent has had a hip fracture Has rheumatoid arthritis Is being treated for osteoporosis Has used the following medications: Fosamax (i.e. alendronate), Vitamin D Has the following medical conditions: Hysterectomy Patient maximum height was 60 Menopause Age: 48 No regular weight bearing exercise Drinks caffeinated beverages Onset of menses at age 10 Number of children 1 Impression: The patient has osteoporosis, based on the Left Femoral Neck T-score. The patient has risk factors, including: parental hip fracture. Discussion: It is important to ask patients whether they are taking their medications and to encourage continued and appropriate compliance with their osteoporosis therapies to reduce fracture risk. It is also important to review their risk factors and encourage appropriate calcium and vitamin D intakes, exercise, fall prevention and other lifestyle measures. Follow-Up: Consider a repeat BMD and Vertebral Fracture Assessment (VFA) exam in 2 years or sooner if medically necessary, to reassess this patient's status. Reported by: JOSE on 11/14/2024 1:33:00 PM. Reviewed, dictated and finalized at location A.
== END 2024-11-14 13:10 | disposition home or self-care (01) ==
LOC: CHSIMG 13:11
PROVIDERS: PCP Internal Medicine; Visit Provider Internal Medicine
DX: Z78.0 Asymptomatic menopausal state (principal); M85.89 Other specified disorders of bone density and structure, multiple sites; M81.0 Age-related osteoporosis without current pathological fracture
CPT/HCPCS: 77080

== ENCOUNTER 2024-12-05 10:11 | Outpatient (CLI) | payer MEDICARE, SELFPAY ==
--- NOTE | ~2024-12-05 | MR_ITS ---
EXAMINATION: MR lumbar spine wo con DATE: 12/05/2024 10:44 INDICATION: Spinal stenosis, lumbar region with neurogenic claudication. TECHNIQUE: Magnetic resonance imaging (MRI) of the lumbar spine was performed without intravenous con trast. Sequences included sagittal T2-weighted FSE, sagittal T2-weighted FS FSE, sagittal T1-weighted FSE, and axial T2-weighted FSE. COMPARISON: None FINDINGS: There is 11 degrees levoscoliosis of lumbar spine. Vertebral body heights are normal. Inter vertebral disc heights are normal. The distal spinal cord signal intensity is normal. The conus medul moni is at L1. The following disc levels are specifically discussed: L1-L2: The disc is bulging and has an annular fissure. There is severe right and mild left facet join t osteoarthritis. There is no neural foraminal stenosis. There is mild central canal stenosis. L2-L3: The disc is bulging. There is mild bilateral facet joint osteoarthritis. There is mild bilater al neural foraminal stenosis. There is mild central canal stenosis. L3-L4: The disc is mildly bulging. There is mild bilateral facet joint osteoarthritis. There is mild bilateral neural foraminal stenosis. There is no central canal stenosis. L4-L5: The disc is bulging and has an annular fissure. There is severe bilateral facet joint osteoart hritis. There is mild bilateral neural foraminal stenosis. There is mild central canal stenosis. L5-S1: The disc is bulging. There is severe bilateral facet joint osteoarthritis. There is mild bilat eral neural foraminal stenosis. There is mild central canal stenosis. IMPRESSION: 1. Mild lumbar spondylosis. 2. Lumbar levoscoliosis. Reviewed, dictated and finalized at location A. R QUALITY ASSISTANT
== END 2024-12-05 10:12 | disposition home or self-care (01) ==
LOC: MICIMG 10:12
PROVIDERS: PCP Internal Medicine; Visit Provider Neurological Surgery
DX: M47.816 Spondylosis without myelopathy or radiculopathy, lumbar region (principal); M41.86 Other forms of scoliosis, lumbar region; M48.02 Spinal stenosis, cervical region
CPT/HCPCS: 72148

== ENCOUNTER 2025-01-04 08:53 | Emergency (ER) | payer MEDICARE, SELFPAY ==
[2025-01-04] VITALS (11 sets, daily range): BP systolic 106–159; BP diastolic 48–78; PULSE 75–90; RESP 10–16; TEMP 36.4; O2SAT 93–100
--- NOTE | ~2025-01-04 | CT_ITS ---
CT of the Abdomen and Pelvis: Indication: Sepsis Technique: 2.5 mm axial scans were obtained through the abdomen and pelvis following intravenous adm inistration of 100 cc of Omnipaque 350. Dose reduction technique was used on this scan by utilizing a utomated exposure control and iterative reconstruction technique. The dose-length product (DLP) was 3 34.66 mGy-cm. COMPARISON: 06/09/2024 Findings: Scans through the lung bases demonstrate calcified granulomas. The liver, spleen, pancreas, adrenals and right kidney are within normal limits. Cholecystectomy clip s are present. Probable post ablation change at the left kidney, similar to prior exam. There are ath erosclerotic calcifications of the aorta. No lymphadenopathy. No bowel obstruction or bowel wall thickening. There is no evidence to suggest acute appendicitis. Images through the pelvis were performed. Urinary bladder unremarkable. No adnexal mass seen. No asci derrell. Impression: No acute abnormality. Probable post ablation change of the left kidney, similar to prior exam. Reviewed, dictated and finalized at location . Impression: No acute abnormality. Probable post ablation change of the left kidney, similar to prior exam.
--- NOTE | ~2025-01-04 | XR_ITS ---
Clinical Indication: Weakness PA and lateral views of the chest: Comparison: 02/01/2024 Findings: Scattered calcified granulomas are again present. The lungs are otherwise clear, without ev idence of focal consolidation or pleural effusion. Cardiomediastinal silhouette is within normal pay[place] its. Bones and soft tissues are unremarkable. Impression: No acute abnormality. Evidence of prior granulomatous disease. Reviewed, dictated and finalized at location . Impression: No acute abnormality. Evidence of prior granulomatous disease.
--- NOTE | 2025-01-04 08:58 | ECG_ITS ---
Test Date: 2025-01-04 09:00:35 Measurements Intervals [place] Rate: 79 P: 46 LA: 120 QRS: 13 QRSD: 86 T: 70 QT: 413 QTc: 474 Interpretive Statements SINUS RHYTHM NONSPECIFIC T-WAVE ABNORMALITY No previous ECG available for comparison Electronically Signed On 01-05-2025 11:09:47 CDT by Manuel Weber M.D.
--- NOTE | 2025-01-04 09:07 | ED_ITS ---
HPI - General Adult General Chief complaint: Weakness Stated complaint: weakness Time Seen by Provider: 01/04/25 09:06 Source: patient History of Present Illness HPI narrative: 79 years old white female came to the ED by ambulance from home complaining of feeling weak all over mainly lower extremity bilateral knee patient with that she could not sleep last night because and intermittent muscle cramps of the legs, causing her to have difficulty walking this morning. History of weakness of the lower extremity since January 2024, been seen numerous of time by her orthopedic and neurosurgeon without specific diagnosis. Currently patient main complaint is weakness of the legs. She denies any numbness or tingling. Patient report that feeling is not different than before. Patient reports having flu-like symptoms 3 weeks ago, currently intermittent dry cough. Patient on cyclobenzaprine, diazepam, tramadol and gabapentin Related Data Home Medications ?Medication ?Instructions ?Recorded ?Confirmed ?Last Taken ?Type cyclobenzaprine 10 mg tablet 10 mg PO BID 08/15/23 06/24/24 Unknown History ferrous sulfate 325 mg (65 mg 325 mg PO BID 08/15/23 06/24/24 Unknown History iron) tablet (FeroSul) gabapentin 300 mg capsule 300 mg PO TID 08/15/23 06/24/24 Unknown History naproxen 500 mg tablet 500 mg PO DAILY 08/15/23 06/24/24 Unknown History tramadol 50 mg tablet 50 mg PO BID 08/15/23 06/24/24 Unknown History alendronate 70 mg tablet 70 mg PO WEEKLY 04/23/24 06/24/24 Unknown History fluticasone propionate 50 1 spray intranasal DAILY 04/23/24 06/24/24 Unknown History mcg/actuation nasal spray,suspension (Children's Flonase Allergy Relief) mecobalamin (vitamin B12) 10,000 mcg IM 04/23/24 06/24/24 Unknown History mcg solution for injection ergocalciferol (vitamin D2) 1,250 1 unit PO MONTHLY 10/16/24 Unknown History mcg (50,000 unit) capsule Allergies Allergy/AdvReac Type Severity Reaction Status Date / Time No Known Allergies Allergy Verified 01/04/25 09:02 Review of Systems 2 Review of Systems: All systems reviewed & are unremarkable except as noted in HPI and below PMFSH Past Medical History Medical History Anxiety IBS (irritable bowel syndrome) Osteoporosis Anemia Kidney disorder Surgical History Surgical History History of kidney surgery History of hysterectomy History of History of tonsillectomy History of neck surgery History of cholecystectomy Family History Family History Other Heart disease Social History Social History Smoking status: Never smoker Second hand tobacco smoke exposure: No Alcohol intake: current Alcohol use details: wine/ vodka occasionally Substance use: never Substance use type: does not use Do You Feel Safe in your Home?: Yes Lack of Transportation: No Lack of Food: Never True Current Housing: I Have Housing Concerned About Future Housing: No Difficulty Paying Gas/Electric Bills: No Difficulty Paying for Meds: No Currently Unemployed: No Education: High School Diploma/GED Difficulty w/ Childcare or Family Care: No Living arrangements: with family Occupation/Education: retired 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 Musculoskeletal: Normal range of motion, nontender back Neurologic: Alert and oriented ?3, POLE CLASSIFIER is normal as tested, no gross motor deficit. Patient is able to get out of bed and walk for few steps in the ED, without executive sales assistant, normal gait, no dizziness or lightheadedness. Patient is telling me that now she have no symptoms. Course Vital Signs Vital signs: Vital Signs Temperature 36.4 C L 01/04/25 08:54 Pulse Rate 77 01/04/25 08:54 Respiratory Rate 14 01/04/25 08:54 Blood Pressure 106/52 L 01/04/25 08:54 Pulse Oximetry 96 01/04/25 08:54 Oxygen Delivery Room Air 01/04/25 08:54 Temperature 36.4 C L 01/04/25 08:54 Pulse Rate 87 01/04/25 11:00 Respiratory Rate 14 01/04/25 11:00 Blood Pressure 122/48 L 01/04/25 09:16 Pulse Oximetry 100 01/04/25 11:00 Oxygen Delivery Room Air 01/04/25 08:54 Medical Decision Making MDM Narrative Medical decision making narrative: Patient came to the ED with weakness of the lower extremities and unable to walk, low blood pressure according to EMT Vital sign showing blood pressure 106/52, otherwise within normal limit Physical examination unremarkable Differential diagnosis include orthostatic hypotension, sepsis, urinary tract infection, pneumonia, electrolyte imbalance, dehydration Blood workup today includes CBC, CMP, troponin, blood culture, lactic acid, CRP showed WBC of 16.9, otherwise no significant abnormalities Urinalysis showed no evidence of infection Chest x-ray showed no significant abnormality CT abdomen and pelvis with IV contrast showed no significant abnormalities Patient blood pressure on arrival to the ED was 106/52 at the time of discharge 148/88. Patient probably was orthostatic hypotension prior to arrival to the emergency room, blood pressure improved after IV fluid. In the ED patient was able to get up and walk and go back to the bathroom back and forth without executive sales assistant and without complaints. Discharge: Weakness, Vital Signs Vital Signs: Vital Signs Temperature 36.4 C L 01/04/25 08:54 Pulse Rate 77 01/04/25 08:54 Respiratory Rate 14 01/04/25 08:54 Blood Pressure 106/52 L 01/04/25 08:54 Pulse Oximetry 96 01/04/25 08:54 Oxygen Delivery Room Air 01/04/25 08:54 Temperature 36.4 C L 01/04/25 08:54 Pulse Rate 87 01/04/25 11:00 Respiratory Rate 14 01/04/25 11:00 Blood Pressure 122/48 L 01/04/25 09:16 Pulse Oximetry 100 01/04/25 11:00 Oxygen Delivery Room Air 01/04/25 08:54 Lab Data 01/04/25 09:06 01/04/25 09:06 Labs: Lab Results 01/04/25 01/04/25 01/04/25 Range/Units 09:06 09:28 10:25 WBC 16.9 H (4.5-10.0) K/mm3 RBC 4.25 (4.2-5.4) M/mm3 Hgb 12.4 (12.0-15.0) g/dL Hct 38.4 (37.0-47.0) % MCV 90.4 (80-100) fl MCH 29.2 (26-34) pg MCHC 32.3 (32-36) g/dl RDW 13.2 (11.5-14.5) % Plt Count 150 (150-375) k/mm3 MPV 9.3 (7.4-10.4) fl Immature Gran % (Auto) 0.7 H (0-0.5) % Neut % (Auto) 89.4 H (45.5-73.1) % Lymph % (Auto) 2.5 L (18.3-44.2) % Ashley % (Auto) 6.0 (2.6-8.5) % Eos % (Auto) 1.1 (0-4.4) % Baso % (Auto) 0.3 (0.2-1.2) % Lymph # (Auto) 0.42 L (0.9-3.2) K/mm3 Ashley # (Auto) 1.0 H (0.1-0.6) K/mm3 Eos # (Auto) 0.2 (0-0.3) K/mm3 Baso # (Auto) 0.1 (0.0-0.1) K/mm3 Abs Immat Gran (auto) 0.11 H (0.00-0.031) K/mm3 Absolute Neuts (auto) 15.1 H (1.3-6.7) K/mm3 Absolute Nucleated RBC 0.000 (0.0-0.012) K/mm3 Nucleated RBC % 0.0 (0.0-0.2) % PT 14.2 (11.1-14.7) Seconds INR 1.1 APTT 28.3 (22.3-36.8) Seconds Sodium 136 L (137-145) mmol/L Potassium 3.8 (3.4-5.0) mmol/L Chloride 105 (98-107) mmol/L Carbon Dioxide 24 (22-30) mmol/L Anion Gap 7 (4-12) mmol/L BUN 22 H D (7-17) mg/dL Creatinine 0.98 (0.7-1.0) mg/dL Estim Creat Clear Calc 34 ml/min Estimated GFR 54 L (59 - ) Glucose 149 H (65-110) mg/dL Lactic Acid 1.2 (0.7-2.0) mmol/L Calcium 8.7 (8.4-10.2) mg/dL Total Bilirubin 2.2 H (0.2-1.3) mg/dL AST 36 (14-36) U/L ALT 23 (6-35) U/L Alkaline Phosphatase 67 (38-126) U/L C-Reactive Protein 2.5 H (<1.0) mg/dL Total Protein 6.0 L (6.3-8.2) g/dL Albumin 3.6 (3.5-5.1) g/dL Urine Color Yellow (Yellow) Urine Appearance Clear (Clear) Urine pH 5.5 (5.0-9.0) Ur Specific [place] 1.021 (1.001-1.035) Urine Protein Negative (Negative) mg/dL Urine Glucose (UA) Negative (Negative) mg/dL Urine Ketones Trace H (Negative) mg/dL Ur Blood (Man) Negative (Negative) Urine Nitrate Negative (Negative) Urine Bilirubin Negative (Negative) Urine Urobilinogen 1.0 (<2.0) mg/dL Leukocyte Esterase Rfl Negative (Negative) ESTELLE/UL Influenza A (RT-PCR) Negative (Negative) Influenza B (RT-PCR) Negative (Negative) RSV (RT-PCR) Negative (Negative) SARS-CoV-2 RNA (RT-PCR) Negative (Negative) Imaging Data Radiologist's impression: Impressions Chest X-Ray 01/04/25 09:54 Impression: No acute abnormality. Evidence of prior granulomatous disease. Abdomen/Pelvis CT 01/04/25 11:04 Impression: No acute abnormality. Probable post ablation change of the left kidney, similar to prior exam. ECG Data EKG #1: Attestation: I personally reviewed and interpreted this ECG as follows: ECG completion date: 01/04/25 Interpretation: Normal sinus rhythm at 79 beats per minute, nonspecific T-wave abnormality, no previous EKG available for comparison Critical Care Time Critical Care Time Critical Care Time: Yes Total Critical Care Time: 30 Discharge Plan Discharge Clinical Impression: Weakness Patient Disposition: Home, Self-Care Condition: Improved Instructions: Weakness (ED) Additional Instructions: Return if symptoms are worsening , call your family physician for appointment, take Tylenol as as needed for aches and pain, continue home medications. Contact family physician for possible physical therapy, and possible drug reaction to cyclobenzaprine, diazepam, gabapentin and tramadol Contact Neurosurgery for re-evaluation Patient Language: Syriac Prescriptions: No Action alendronate 70 mg tablet 70 mg PO WEEKLY fluticasone propionate [Children's Flonase Allergy Rlf] 50 mcg/actuation spray,suspension 1 spray intranasal DAILY Rx Instructions: administer into each nostril mecobalamin (vitamin B12) 10,000 mcg recon soln IM (DME) walker [facility] [place] See Rx Instructions .Route Qty: 1 0RF Rx Instructions: As directed diazepam [Valium] 5 mg tablet 5 mg PO DIRECTED Qty: 2 0RF Rx Instructions: Take 1 tablet an hour before MRI. Take the second tablet immediately before MRI. cyclobenzaprine 10 mg tablet 10 mg PO BID tramadol 50 mg tablet 50 mg PO BID ferrous sulfate [FeroSul] 325 mg (65 mg iron) tablet 325 mg PO BID gabapentin 300 mg capsule 300 mg PO TID naproxen 500 mg tablet 500 mg PO DAILY ergocalciferol (vitamin D2) 1,250 mcg (50,000 unit) capsule 1 unit PO MONTHLY Follow-up/Referrals: Myron,Duane May MD [Primary Care Provider] -
[2025-01-04 09:13] LABS: Basophils Absolute Auto 0.1 K/mm3 (0.0-0.1); Basophils Percent Auto 0.3 % (0.2-1.2); Eosinophils Absolute Auto 0.2 K/mm3 (0-0.3); Eosinophils Percent Auto 1.1 % (0-4.4); Hematocrit 38.4 % (37.0-47.0); Hemoglobin 12.4 g/dL (12.0-15.0); Immature Granulocyte Absolute 0.11 K/mm3 (0.00-0.031); Immature Granulocyte Percent A 0.7 % (0-0.5); Lymphocytes Absolute Auto 0.42 K/mm3 (0.9-3.2); Lymphocytes Percent Auto 2.5 % (18.3-44.2); Mean Corpuscular HGB Conc 32.3 g/dl (32-36); Mean Corpuscular Hemoglobin 29.2 pg (26-34); Mean Corpuscular Volume 90.4 fl (80-100); Mean Platelet Volume 9.3 fl (7.4-10.4); Neutrophils Absolute Auto 15.1 K/mm3 (1.3-6.7); Neutrophils Percent Auto 89.4 % (45.5-73.1); Platelet Count Result 150 k/mm3 (150-375); Red Blood Count 4.25 M/mm3 (4.2-5.4); Red Cell Distribution Width 13.2 % (11.5-14.5); White Blood Count 16.9 K/mm3 (4.5-10.0)
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
--- OUTSIDE RECORDS SUMMARY | 2025-01-04 09:13 | XMS_ITS | Continuity of Care Document ---
Author Organization [facility] Address [address] [place] [address] [place] [address] Phone Care Team Providers Care Circulation Manager Name Role Phone Jesse Moore MD Unavailable Unavailable Advance Directives Directive Yes / No Effective Date File Name No Information Encounters Encounter Description Practice Location Reason(s) For Visit Diagnoses Date Provider Providers Copied on Encounter [facility], [address] [place], [place], [id number], [place] tel:[phone] [facility] No Information 1-200 5 Teresa Molina. [address], [place], [place], [id number], [place]. tel:[phone] Family History Family Member Type Diagnosis Age [...]
--- OUTSIDE RECORDS SUMMARY | 2025-01-04 09:13 | XMS_ITS | CONTINUITY OF CARE DOCUMENT ---
Author Name sujit beckett Address Unknown Organization [facility] Address [address] [place] [address] Phone [phone] Care Team Providers Care Alligator Shear Operator Name Role Phone Garcia CHARLES, Shawn Unavailable [phone] Duane Sanches MD Unavailable [phone] Duane Sanches MD Unavailable [phone] PROBLEMS Condition Status Date Provider Notes Family History of Sudden Cardiac : active ? Kyle Garcia MD Chest pain-type to be determined active Kyle Garcia MD Family Hx heart disease active Kyle Garcia MD Hypercholesterolemia active Kyle Garcia MD Abnormal EKG active Shawn Zelaya MD ENCOUNTERS Date Type Provider Location Encounter Diag nosis - In-person encounter Office Visit Shawn Zelaya MD [facility] Abnormal EKG - In-person encounter Office Visit Kyle Garcia MD [facility] Family History of Sudden Cardiac :Chest pain-type to be determinedFamily Hx heart diseaseHypercholesterolemia VITAL SIGNS Date Observation Value Provider Body Mass Index (Ratio) 30.66 kg/m2 Felisa Zelaya MD blood pressure, resting No Kill een Leiva blood pressure, diastolic 78 mm[Hg] Ki llcayla Leiva blood pressure, systolic 122 mm[Hg] Kil hailee [place] oxygen saturation, oximetry 99 % Shirley Leiva respiratory rate E&M 16 /min Shirley [place] pulse rate 94 /min Shirley [place] weight E&M 157 [lb_av] Shirley [place] height E&M 60 [in_i] Shirley Leiva blood pressure, diastolic, left arm 74 mm [Hg] Simona Montoya blood pressure, systolic, left arm 153 mm [Hg] Simona Montoya blood pressure, diastolic, right arm 79 m m[Hg] Simona Montoya blood pressure, systolic, right arm 151 m m[Hg] Simona Montoya pulse rate 66 /min Simona Montoya blood pressure, diastolic 74 mm[Hg] Nd jung Montoya blood pressure, systolic 153 mm[Hg] Vikki sommer Montoya oxygen saturation, oximetry 96 % Simona Montoya Body Mass Index (Ratio) 30.27 kg/m2 Jana arias [facility] respiratory rate E&M 15 /min Simona Montoya weight E&M 155 [lb_av] Simona Montoya height E&M 60 [in_i] Simona Montoya ALLERGIES No Known Drug Allergies HISTORY OF MEDICATION USE No Known Medication SOCIAL HISTORY Date Observation Value Provider social history E&M S moking History: P jing has never smoked. Shawn Zelaya MD social history reviewed E&M revi ewed - no changes required Shawn Zelaya MD number of grandchildren Shawn Zelaya MD [facility] smoking status Never smoker Shirley [facility] smoking status Never smoker Simona Fish n FAMILY HISTORY Family Member Condition Full Sister Family History of Co ronary Artery Disease: Full Sister Family History of Co ronary Artery Disease: Full Sister Family History of Co ronary Artery Disease: Full Sister Family History of Co ronary Artery Disease: Full Brother Family History of Co ronary Artery Disease: Father Family History of Goldberg dden Cardiac : INSURANCE PROVIDERS Payer name Policy type / Coverage type [place]edom red green party ID UHC MEDICARE COMPLETE HMO Other [id number] ADVANCE DIRECTIVES Name Date DISCUSSED - NO DECISION MADE TREATMENT PLAN Date Name Performer Cardiology:This gloria ent is due for surgery She has effort related SOB and some nonspecific ST-T EKG changes. The echocardiogram today shows normal LV size and systolic function with no wall motion abnormalities. She can undergo this surgery at an acceptable cardiovascular risk. Shawn Zelaya MD Cardiology:This gloria ent is due for surgery She has effort related SOB and some nonspecific ST-T EKG changes. Will arrange an echocardiogram and if there are no wall motion abnormalities and her EF is normal, she can undergo this surgery at an acceptable cardiovascular risk. Shawn Zelaya MD Date Name Complete Echo Complete Echo STR - Nuclear HISTORY OF PROCEDURES Procedure Date Procedure Name Provider Procedure Notes S tatus EKG Shawn Zelaya MD complet ed
--- OUTSIDE RECORDS SUMMARY | 2025-01-04 09:13 | XMS_ITS | Referral Summary ---
Author Organization [facility] Address [address] [address] Care Team Providers Care Wreath And Garland Maker Name Role Phone Duane Sanches MD Primary Care Provider [phone] Source Comments [facility],non-owned Affiliates and Associated Physician Practices is amultiple site organization consisting of ambulatory clinics and hospital sitesin [place], [place], [place] and [place]. This disclosure is being madepursuant to the Care Everywhere program and may not contain all information available regarding this patient. Last updated 18.[facility] Allergies Active Allergy Reactions Criticality Noted Date Comments Codeine Nausea and/or Vomiting 08/08/2019 Levofloxacin Nausea and/or Vomiting High 08/08/2019 Medications * Be aware that medications may not be up to date on this document. Alwaysverify current medications with the patient. Medication Sig Dispensed Refills Start Date End Date Status gabapentin (NEURONTIN) 300 MG capsule Take 1 capsule by mouth 3 times daily Active cyclobenzaprine (FLEXERIL) 10 MG tablet Take 1 tablet by mouth 2 times daily 0 07/01/2019 Active naproxen (NAPROSYN) 500 MG tablet Take 1 tablet by mouth 2 times daily 0 07/17/2019 Active traMADol (ULTRAM) 50 MG tablet Take 1 tablet by mouth 2 times daily Active montelukast (SINGULAIR) 10 MG tablet Take 1 tablet by mouth once daily as needed Active fluticasone propionate (FLONASE) 50 MCG/ACT nasal spray [place] 3 sprays into each nostril once daily Active erythromycin (ROMYCIN) 5 MG/GM ophthalmic ointment Apply to biopsy site left lower eyelid 3 times a day for 1 week. 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 Social History Tobacco Use Types Packs/Day Years Used Date Smoking Tobacco: Never Smokeless Tobacco: Never Alcohol Use Standard Drinks/Week Comments Yes 0 (1 standard drink = 0.6 oz pur e alcohol) AUDIT-C Answer Date Recorded Frequency of Alcohol Consumption Monthly or less 08/08/2019 Average Number of Drinks 1 or 2 019 Frequency of Binge Drinking Never 07/29 Sex and Gender Information Value Date Recorded Sex Assigned at Not on file Gender Identity Not on file Sexual Orientation Not on file Plan of Treatment Not on file Care Teams Wreath And Garland Maker Relationship Specialty Start Date End Date Duane Sanches MD [address] [address] PCP - General 08/01/19
--- OUTSIDE RECORDS SUMMARY | 2025-01-04 09:13 | XMS_ITS | Clinical Summary ---
Author Organization [facility] Care Team Providers Care Decorating Inspector Name Role Phone Duane Sanches MD Primary Care Provider [phone] Allergies Active Allergy Reactions Criticality Noted Date [...] ORAL)Indication s:supplement Take 1 tablet/capsule by mouth video production assistant before breakfast Active cholecalciferol , vitamin D3, (VITAMIN D3 ORAL) Take 1 tablet/capsule by mouth every morning Active MULTIVITAMIN ORALIndications :supplement Take 1 tablet/capsule by mouth every morning Active acetaminophen (TYLENOL) 325 mg tabletIndicatio ns:Fever,Pain Take 2 tablets (650 mg total) by mouth every 4 (four) hours as needed for pain 4 Active Active Problems Problem Noted Date Diagnosed [...] deficiency 04/03/2018 Chest pain 04/12/2015 Hypercholesterolemia 04/12/2015 Encounters Date Type Department Care Team Description 01/01/2025 Telephone [facility] [address] [place] [address] Amrita Rosario RN from Last 3 Months Surgical History Surgery Date Site/Laterality Comments NECK SURGERY 2019 TONSILLECTOMY SECTION CRYOABLATION RENAL LEFT 01/29/2024 Left Family History Medical History Relation Name Comments Anesthesia problems Neg Hx Malig Hypertension Neg Hx Malig Hyperthermia Neg Hx Pseudochol deficiency Neg Hx Social History Tobacco Use Types Packs/Day Years [...] on file Sexual Orientation Not on file Obstetrics History Last Filed Vital Signs Vital Sign Reading [...] 01/29/2024 12:30 PM CDT Plan of Treatment Health Maintenance Due Date Last Done Comments Depression Screening 1945 Osteoporosis Screening-Bone Density Scan 1943 DTaP/Tdap/Td Vaccine (1 - Tdap) 1954 Hepatitis B Screening 1961 Zoster Vaccine (1 of 2) 1993 Well Visit 65+ 2008 Pneumococcal vaccine 65+ (2 of 2 - PPSV23) 10/12/2016 10/12/2015 Covid-19 Vaccine (3 - 2023-2 5 season) 2024 12/31/2020, 12/03/2020 Influenza Vaccine (#1) 2024 , 09/06/2020, 08/19/2019, Additional history exists Fall Risk Assessment 01/29/2025 01/30/2024 Insurance MEDICARE [employer] HMO REF Advance Directives For more information, please contact: [phone] * Full Code (Latest Code Status on File) Date Activated Date Inactivated Comments 01/29/2024 12:45 PM 01/30/2024 5:33 PM Care Teams Decorating Inspector Relationship Specialty Start Date End Date Duane Sanches MD [address] [place] [address] PCP - General Internal Medicine 12/25/23
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
--- OUTSIDE RECORDS SUMMARY | 2025-01-04 09:13 | XMS_ITS | Clinical Summary ---
Author Organization [facility] [employer] Address [address] [place] [address] Care Team Providers Care Equalizing Saw Operator Name Role Phone Duane Sanches MD Primary Care Provider + [phone] Source Comments [facility] [employer],non-owned Affiliates and Associated Physician Practices is amultiple site organization consisting of ambulatory clinics and hospital sitesin [place], [place], [place] and [place]. This disclosure is being madepursuant to the Care Everywhere program and may not contain all information available regarding this patient. Last updated 18.[facility] [employer] Allergies Active Allergy Reactions Criticality Noted Date [...] fluticasone propionate (FLONASE) 50 MCG/ACT nasal spray Olean 3 sprays into each nostril once daily [...] Orientation Not on file Plan of Treatment Health Maintenance Due Date Last Done Comments BONE DENSITY TESTING 1945 DTAP/TDAP/TD VACCINES (1 - Tdap) 1962 PNEUMOCOCCAL VACCINE 50+ (1 of 1 - PCV) 1993 ZOSTER VACCINE (1 of 2) 1993 Respiratory Syncytial Virus (RSV) Vaccine Pt: or over 60 yrs (1 - 1-dose 75+ series) 2018 COVID-19 VACCINE (1 - 2023- season) 2024 INFLUENZA VACCINE (#1) 2024 8, 10/10/2017, 08/18/2016, Additional history exists DEPRESSION SCREENING 10/29/2024 MEDICARE AWV CALENDAR YEAR 2024 HEPATITIS B VACCINE Aged Out No longe r eligible based on patient's age to complete this topic HIB VACCINE Aged Out No longer eligi ble based on patient's age to complete this topic HPV VACCINE Aged Out No longer eligi ble based on patient's age to complete this topic MENINGOCOCCAL (Group B) VACCINE Aged Out No longer eligible based on patient's age to complete this topic MENINGOCOCCAL VACCINE Aged Out No heidy ty eligible based on patient's age to complete this topic Care Teams Equalizing Saw Operator Relationship Specialty Start Date End Date Duane Sanches MD [address] [address] PCP - General 08/01/19
--- OUTSIDE RECORDS SUMMARY | 2025-01-04 09:13 | XMS_ITS ---
Author Organization [facility] Address [address] [place] [address] Care Team Providers Care Blood Bank Custodian Name Role Phone Michael CHARLES, Silvio Unavailable Unavailable Yoan Wu Unavailable [phone] Allergies No Known Allergies REASON FOR VISIT RIGHT HIP INJ Medications Medication SIG (Take, Route, Frequency, Duration) Notes Start Date End Date Status Vitamin D (Ergocalciferol) 1.25 MG (56598 UT) TAKE 1 CAPSULE BY MOUTH EVERY WEEK Oral for 84 E559,Unavailab le Active Fluticasone Propionate 50 MCG/ACT SHAKE LIQUID AND USE 2 SPRAYS IN EACH NOSTRIL EVERY DAY Nasal for 90 J309,Unavailab le Active Cyanocobalamin 1000 MCG/ML INJECT 1 ML UNDER THE SKIN ONCE A MONTH Injection for 90 Active Alendronate Sodium 70 MG Oral for 84 Active Cyclobenzaprine HCl 10 MG TAKE 1 TABLET BY MOUTH DAILY Oral for 30 Days Active Gabapentin 300 MG TAKE 1 CAPSULE BY MOUTH TWICE DAILY Oral for 30 Days Active traMADol HCl 50 MG TAKE 1 TABLET BY MOUTH TWICE DAILY Oral for 30 Days Active Naproxen 500 MG TAKE 1 TABLET BY MOUTH EVERY 12 HOURS WITH FOOD Oral for 30 Days Active diazePAM 5 MG TAKE 1 TABLET BY MOUTH AN HOUR BEFORE MRI DIRECTED. TAKE SECOND TABLET IMMEDIATELY BEFORE MRI. Oral for 1 Days Active Fluticasone Propionate 50 MCG/ACT SHAKE LIQUID AND USE 2 SPRAYS IN EACH NOSTRIL EVERY DAY Nasal for 90 Days Active Naproxen 500 MG TAKE 1 TABLET BY MOUTH EVERY 12 HOURS WITH FOOD for 30 Active Gabapentin 300 MG TAKE 1 CAPSULE BY MOUTH TWICE DAILY for 30 Active Ciprofloxacin HCl 500 MG TAKE 1 TABLET B Y MOUTH TWICE DAILY Oral for 6 Active traMADol HCl 50 MG TAKE 1 TABLET BY MOUTH TWICE DAILY Oral for 30 07/24/2024 Active Cyclobenzaprine HCl 10 MG 1 tablet Oral Once a day for 30 days Active FeroSul 325 (65 Fe) MG TAKE 1 TABLET BY MOUTH TWICE DAILY Oral for 100 Active Methocarbamol 750 MG Oral for 2 Active Lidocaine 5 % External for 15 Active Vital Signs Blood pressure systolic 147 mm Hg 12/10/19 25 Blood pressure diastolic 80 mm Hg 025 Heart Rate 74 /min 12/10/2024 Height 5ft in 12/10/2024 Weight 140 lbs 12/10/2024 BMI 27.34 kg/m2 12/10/2024 Height-cm 152.4 cm 12/10/2024 Weight-kg 63.5 kg 12/10/2024 Encounters Encounter Location Date Provider Diagnosis [facility] [address] [place] [address] 12/10/2024 Yoan Wu Right hip pain M25.5 51 ; Low back pain M54.50 ; Cervicalgia M54.2 and Other exterminator termite (current) drug therapy Z79.899 Assessments Encounter Date Diagnosis (ICD Code) Assessment Notes Treatment Notes Treatment Clinical Notes Section Notes 12/10/2024 Right hip pain (ICD-10 - M25.551) After discussing the benefit and risk/complicatio n including but not limited bleeding, infection, nerve damage, allergic reaction, spinal fluid leak, paralysis, and of right hip joint intra-articular steroid injection under fluoroscopic guidance were discussed with the patient who verbalized understanding and agrees to proceed today , the procedure was performed without any events, patient tolerated the procedure . Patient will be followed as scheduled. 12/10/2024 Low back pain (ICD-10 - M54.50) After discussing the benefit and risk/complicatio n including but not limited bleeding, infection, nerve damage, allergic reaction, spinal fluid leak, paralysis, and of right hip joint intra-articular steroid injection under fluoroscopic guidance were discussed with the patient who verbalized understanding and agrees to proceed today , the procedure was performed without any events, patient tolerated the procedure . Patient will be followed as scheduled. 12/10/2024 Cervicalgia (ICD-10 - M54.2) After discussing the benefit and risk/complicatio n including but not limited bleeding, infection, nerve damage, allergic reaction, spinal fluid leak, paralysis, and of right hip joint intra-articular steroid injection under fluoroscopic guidance were discussed with the patient who verbalized understanding and agrees to proceed today , the procedure was performed without any events, patient tolerated the procedure . Patient will be followed as scheduled. 12/10/2024 Other exterminator termite (current) drug therapy (ICD-10 - Z79.899) After discussing the benefit and risk/complicatio n including but not limited bleeding, infection, nerve damage, allergic reaction, spinal fluid leak, paralysis, and of right hip joint intra-articular steroid injection under fluoroscopic guidance were discussed with the patient who verbalized understanding and agrees to proceed today , the procedure was performed without any events, patient tolerated the procedure . Patient will be followed as scheduled. 12/10/2024 Other Body Mass Index: Care Instructions material was printed, High Blood Pressure: Care Instructions material was printed After discussing the benefit and risk/complicatio n including but not limited bleeding, infection, nerve damage, allergic reaction, spinal fluid leak, paralysis, and of right hip joint intra-articular steroid injection under fluoroscopic guidance were discussed with the patient who verbalized understanding and agrees to proceed today , the procedure was performed without any events, patient tolerated the procedure . Patient will be followed as scheduled. Plan Of Treatment Treatment Notes Assessment Notes Other Body Mass Index: Car e Instructions material was printed, High Blood Pressure: Care Instructions material was printed Medications Administered Medication Instructions Date of Administration Dosage Notes Hip Inj Intra-articular 12/10/2024 R IGHT HIP INJ Progress Notes * Niya THOMAS EDOB:1945 ( 79 yo F)Acc No.[id number]:12/10/2024 Patient: Niya MEZA Provider: Kellie Wu MD :1945 A ge:79 Y S ex:Female Date:12/10/2024 Address:[address] [place] [address] [facility] Subjective: * Chief Complaints: * R IGHT HIP INJ * HPI: * Established Patient: Patient is here for interventional treatment as scheduled. Patient rates current pain VAS 6/10 , pain is impairing ADLs , which has limited response to conservative treatment including medication/therapy/exercise P atient is not taking blood thinner Patient denies allergic history of IVP dye/ shellfish Patient denies antibiotics use currently Patient saw Dr. Milton, spine surgeon recently, who recommended repeating right hip joint injection. Established Patient Questionnaire: 1 . Are you currently taking a Blood Thinner Medication? N o 2 . Do you have an allergy to I.V. Contrast or Shellfish? N o 3 . List any changes to medical history. (eg; Falls, Test, Scans, Blood Work, and Hospitalizations) F alls,Scan,Blood Work 4 . Have you been exposed to anyone with COVID in the last 2 weeks? N o 5 . Have you been exposed to anyone with the FLU in the last 72 hours? N o 6 . What is your Pain Level today? (1-10, Scroll and select one) 6 7 . Where is your pain located? R ight Glute,Right Leg 8 . After your last visit, what Percentage of improvement did you experience? 4 0 9 . Are you doing Physical Therapy, Chiropractic, or Massage Therapy? N o 1 0. Are you doing an at home Exercise Program? N o 1 1. What activities or positions increase your Pain? (Scroll to select one or multiple) S tanding,Walking,Chores 1 2. What activities or positions decrease your Pain? (Scroll to select one or multiple) L thiago down,Sitting 1 3. How would you describe your Pain? (Scroll to select one or multiple) S tabbing,Aching,Throbbing,Burning,Numbness 1 4. Are you having difficulty sleeping? Y es 1 5. When was the last time you had your blood drawn? (Please enter your best estimate) A pril 2023 1 6. When was your last Mammogram? (Please put N/A if you are male, for Females please put the best Estimate or Never. ) 2 024 1 7. When was your last Colonoscopy? (Please put the best Estimate or Never. ) 2 024 1 8. Do you need any refills on your medications today? N o 1 9. Please list ALL changes to Medications or Allergies? B 12 inections 2 0. Are you Diabetic? N o 2 1. Do you suffer from Constipation? Y es Procedure Consent I nformed Consent obtained on 0 12/10/2024 * ROS: G eneral/Constitutional: Denies Change appetite. Denies Chills. Denies Fatigue. Denies Fever. Denies Lightheadedness. ENT: Denies Tinnitus. Denies Dysphagia. Ophthalmologic: Denies Blurred vision. * Medical History: * Surgical History: * Hospitalization/Major Diagno stic Procedure: n o hospitalization since last visit * Social History: * Established Patient: Yunier jimenez D o you smoke? N o * Medications: T akingFluticasone Propionate 50 MCG/ACT Suspension SHAKE LIQUID AND USE 2 SPRAYS IN EACH NOSTRIL EVERY DAY Nasal , Notes to Pharmacist: Suzi HolleyCyanocobalamin 1000 MCG/ML Solution INJECT 1 ML UNDER THE SKIN ONCE A MONTH Injection Alendronate Sodium 70 MG Tablet Oral Vitamin D (Ergocalciferol) 1.25 MG (61882 UT) Capsule TAKE 1 CAPSULE BY MOUTH EVERY WEEK Oral , Notes to Pharmacist: Kelley,UnavailableFeroSul 325 (65 Fe) MG Tablet TAKE 1 TABLET BY MOUTH TWICE DAILY Oral Methocarbamol 750 MG Tablet Oral Lidocaine 5 % Patch External Ciprofloxacin HCl 500 MG Tablet TAKE 1 TABLET BY MOUTH TWICE DAILY Oral traMADol HCl 50 MG Tablet TAKE 1 TABLET BY MOUTH TWICE DAILY Oral Cyclobenzaprine HCl 10 MG Tablet 1 tablet Oral Once a day Naproxen 500 MG Tablet TAKE 1 TABLET BY MOUTH EVERY 12 HOURS WITH FOOD Gabapentin 300 MG Capsule TAKE 1 CAPSULE BY MOUTH TWICE DAILY diazePAM 5 MG Tablet TAKE 1 TABLET BY MOUTH AN HOUR BEFORE MRI DIRECTED. TAKE SECOND TABLET IMMEDIATELY BEFORE MRI. Oral Fluticasone Propionate 50 MCG/ACT Suspension SHAKE LIQUID AND USE 2 SPRAYS IN EACH NOSTRIL EVERY DAY Nasal Gabapentin 300 MG Capsule TAKE 1 CAPSULE BY MOUTH TWICE DAILY Oral traMADol HCl 50 MG Tablet TAKE 1 TABLET BY MOUTH TWICE DAILY Oral Naproxen 500 MG Tablet TAKE 1 TABLET BY MOUTH EVERY 12 HOURS WITH FOOD Oral Cyclobenzaprine HCl 10 MG Tablet TAKE 1 TABLET BY MOUTH DAILY Oral Taking Fluticasone Propionate 50 MCG/ACT Suspension SHAKE LIQUID AND USE 2 SPRAYS IN EACH NOSTRIL EVERY DAY Nasal , Notes to Pharmacist: Kishan,UnavailableTaking Cyanocobalamin 1000 MCG/ML Solution INJECT 1 ML UNDER THE SKIN ONCE A MONTH Injection Taking Alendronate Sodium 70 MG Tablet Oral Taking Vitamin D (Ergocalciferol) 1.25 MG (53998 UT) Capsule TAKE 1 CAPSULE BY MOUTH EVERY WEEK Oral , Notes to Pharmacist: E559,UnavailableTaking FeroSul 325 (65 Fe) MG Tablet TAKE 1 TABLET BY MOUTH TWICE DAILY Oral Taking Methocarbamol 750 MG Tablet Oral Taking Lidocaine 5 % Patch External Taking Ciprofloxacin HCl 500 MG Tablet TAKE 1 TABLET BY MOUTH TWICE DAILY Oral Taking traMADol HCl 50 MG Tablet TAKE 1 TABLET BY MOUTH TWICE DAILY Oral Taking Cyclobenzaprine HCl 10 MG Tablet 1 tablet Oral Once a day Taking Naproxen 500 MG Tablet TAKE 1 TABLET BY MOUTH EVERY 12 HOURS WITH FOOD Taking Gabapentin 300 MG Capsule TAKE 1 CAPSULE BY MOUTH TWICE DAILY Taking diazePAM 5 MG Tablet TAKE 1 TABLET BY MOUTH AN HOUR BEFORE MRI DIRECTED. TAKE SECOND TABLET IMMEDIATELY BEFORE MRI. Oral Taking Fluticasone Propionate 50 MCG/ACT Suspension SHAKE LIQUID AND USE 2 SPRAYS IN EACH NOSTRIL EVERY DAY Nasal Taking Gabapentin 300 MG Capsule TAKE 1 CAPSULE BY MOUTH TWICE DAILY Oral Taking traMADol HCl 50 MG Tablet TAKE 1 TABLET BY MOUTH TWICE DAILY Oral Taking Naproxen 500 MG Tablet TAKE 1 TABLET BY MOUTH EVERY 12 HOURS WITH FOOD Oral Taking Cyclobenzaprine HCl 10 MG Tablet TAKE 1 TABLET BY MOUTH DAILY Oral * Allergies: N .K.D.A.no[Allergies Verified] Objective: * Vitals: H t: 5ft, Wt: 140 lbs, BP: 147/80 mm Hg, Pain scale: 6 1-10, HR: 74 /min, BMI: 27.34 Index, Ht-cm: 152.4 cm, Wt-k.5 kg, Body Surface Area: 1.64. * Examination: G eneral Examination: P atient is alert and oriented to time, place, and person. No appeal distress. Vital signs are stable. Patient is afebrile. Respiration is nonlabored. No slurred speech, sitting comfortably on the chair, walking unassisted, tenderness on the right groin area log roll test positive on the right side. Assessment: * Assessment: 1. R ight hip pain - M25.551 (Primary) 2 . L ow back pain - M54.50 ? 3 . C ervicalgia - M54.2 4 . O ther shelter (current) drug therapy - Z79.899 After discussing the benefit and risk/complication including but not limited bleeding, infection, nerve damage, allergic reaction, spinal fluid leak, paralysis, and of r ight hip joint intra-articular steroid injection under fluoroscopic guidance were discussed with the patient who verbalized understanding and agrees to proceed today , the procedure was performed without any events, patient tolerated the procedure . Patient will be followed as scheduled. Plan: * Treatment: * Procedures: R ight H ip Joint intra-articular steroid Injection with Fluoroscopy After obtaining informed consent, the patient was positioned supine . The operative site was then prepped and draped in the standard sterile fashion using chloraprep and draped in a standard sterile fashion. Under palpation and fluoroscopic guidance with the C-arm in the AP view, the? right proximal femur and hip were identified. The skin overlying this site was then anesthetized with 2 mL of 1% lidocaine using a 25-gauge 1-1/2 inch needle. A 25-gauge 3.5 inch spinal needle was then advanced under fluoroscopic guidance until contacting os along the femoral neck. After negative aspiration, 2 mL of Omnipaque was injected and revealed an arthrogram with adequate spread and no evidence of intravascular spread. Next, a total of 5mL of a mixture containing 1ml of PF Depo-Medrol 40 mg/ml and 4ml of PF Bupivacaine 0.25% was injected showing adequate spread of the dye.The patient tolerated the procedure well. The needle was removed from the patient's hip after the stylet was replaced. The patient's hip was cleaned and Band-Aid was placed over the needle puncture site. The patient moved over to the stretcher and denied any neurological or sensory deficits.The patient tolerated the procedure well without any immediate complication. The back was cleansed and a band-aid was placed over the puncture site. The patient was returned to the supine without difficulty.Post Procedure Note: Patient tolerated procedure wellDischarge Order: May discharge patient when stableDischarge Status: Patient discharged with responsible adult. * Therapeutic Injections: Hip Inj Intra-articular given by Yoan Wu MD * Procedure Codes: 2 0610 DRAIN/INJECT, JOINT/[id number] DRAIN/INJ JOINT/BURSA W/US * Billing Information: * Visit Code: * Procedure Codes: 07896 DRAIN/INJECT, JOINT/BURSA. 51353 DRAIN/INJ JOINT/BURSA W/US. 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 Are you currently taking a Blood Thinner Medication?: No 2. Do you have an allergy to I.V. Contra st or Shellfish?: No 3. List any changes to medic al history. (eg; Falls, Test, Scans, Blood Work, and Hospitalizations): Falls,Scan,Blood Work 4. Have you been exposed to anyone with COVID in the last 2 weeks?: No 5. Have you been exposed to anyone with the FLU in the last 72 hours?: No 6. What is your Pain Level today? (1-10, Scroll and select one): 6 7. Where is your pain located?: Right Gl [place],Right Leg 8. After your last visit, wh at Percentage of improvement did you experience?: 40 9. Are you doing Physical Th erapy, Chiropractic, or Massage Therapy?: No 10. Are you doing an at home Exercise Pr ogram?: No 11. What activities or posit ions increase your Pain? (Scroll to select one or multiple): Standing,Walking,Chores 12. What activities or posit ions decrease your Pain? (Scroll to select one or multiple): Lying down,Sitting 13. How would you describe y our Pain? (Scroll to select one or multiple): Stabbing,Aching,Throbbing,Burning,Numbness 14. Are you having difficulty sleeping?: Yes 15. When was the last time y ou had your blood drawn? (Please enter your best estimate): January 2024 16. When was your last Mammo gram? (Please put N/A if you are male, for Females please put the best Estimate or Never. ): 2023 17. When was your last Colon oscopy? (Please put the best Estimate or Never. ): 2023 18. Do you need any refills on your medi cations today?: No 19. Please list ALL changes to Medicatio ns or Allergies?: B12 inections 20. Are you Diabetic?: No 21. Do you suffer from Constipation?: Ye s Procedure Consent Informed Consent obtained on: 12/10/2024 Examination Category Sub-Category Detail Notes Category Not es General Examination Patient is alert and oriented to time, place, and person. No appeal distress. Vital signs are stable. Patient is afebrile. Respiration is nonlabored. No slurred speech, sitting comfortably on the chair, walking unassisted, tenderness on the right groin area log roll test positive on the right side
--- OUTSIDE RECORDS SUMMARY | 2025-01-04 09:13 | XMS_ITS ---
Author Organization [facility] Address [address] [place] [address] [address] [place] [address] Care Team Providers Care Field Agronomist Name Role Phone Michael CHARLES, Berto Henry Unavailable [phone] Medications Medication SIG (Take, Route, Fr equency, Duration) Notes Start Date End Date Status traMADol HCl 50 MG TAKE 1 TABLET BY RADU TH TWICE DAILY Oral for 30 07/24/2024 Active Encounters Encounter Location Date Provider Diagnosis [facility] [address] [place] [address] 07/24/2024 Berto Lea Plan Of Treatment Medication Medication Name Sig Start Date Stop Date Notes traMADol HCl 50 MG TAKE 1 TABLET BY RADU TH TWICE DAILY Oral for 30 07/24/2024 Progress Notes * Niya THOMAS EDOB:1945 ( 78 yo F)Acc No.[id number]:07/24/2024 Patient: Shruthi SEAMAN Niya Guajardo :1945 A ge:78 Y S ex:Female Phone: Address:[address] [place] [address], [place], [address] * Refills Refill traMADol HCl Tablet, 50 MG, Oral, 60 Each, TAKE 1 TABLET BY MOUTH TWICE DAILY, 30, Refills=2 * true * Date: Generated for Ednai ng/Faariannag/eTransmitting on: 0 01/04/2025 09:13 AM CDT
--- OUTSIDE RECORDS SUMMARY | 2025-01-04 09:13 | XMS_ITS | Patient Health Record ---
Author Organization [facility] Address [address] [place] [address] Care Team Providers Care Leakage Tester Name Role Phone Michael CHARLES, Silvio Unavailable Unavailable Yoan Wu Unavailable [phone] Anayeli Dill PA-C Unavailable Berto Lea Unavailable [phone] Allergies No Known Allergies Results Component Value Reference Range Notes [employer] Profil e Reviewed date:12/27/2024 12:28:24 PM Interpretation: Performing Lab:[facility] (CLIA#: [id number]), [address] [place] [address], Director - Mila Galeas Notes/Report: These tests were developed and their performance characteristics determined by [facility]. They have not been cleared or approved by the [place] Food and Drug Administration. Certifying Museum Preparator: Angelique Alonzo (Remote [id number]) Analyzed at [facility] (CLIA#: [id number]) - [address] [place] [address] - Cloth Worker: Mila Kline Gabapentin Ur CMP >500 >=5 mcg/mL COMPLIANT: Test result is consistent and expected with prescribed drug. Methocarbamol Ur CMP <500 >=500 ng/mL NON-COM PLIANT: Test result indicates patient may not be taking drug prescribed. Cyclobenzaprine Ur CMP 10 >=10 ng/mL COMPL IANT: Test result is consistent and expected with prescribed drug. Benzodiaz Ur CMP <50 >=50 ng/mL NON-COMPLIA NT: Test result indicates patient may not be taking drug prescribed. Tramadol Ur CMP <100 >=100 ng/mL NON-COMPLIAN T: Test result indicates patient may not be taking drug prescribed. BioDetect EXPECTED Test result is consistent with routinely analyzed human urine. 6MAM Ur Ql Cfm <10 >=10 ng/mL NONE DETECTED Amphetamines Ur Ql Cfm <100 >=100 ng/mL NONE DETECTED Benzodiaz Ur Ql Cfm <50 >=50 ng/mL NONE DET ECTED Buprenorphine Ur Ql Cfm <1 >=1 ng/mL NONE DETECTED BZE Ur Ql Cfm <50 >=50 ng/mL NONE DETECTED Fentanyl+Norfentanyl Ur Ql Cfm <5 >=5 ng/mL NONE DETECTED Gabapentin Ur Ql >=5 >=5 mcg/mL POSITIVE Gabapentin Ur Cfm-mCnc >500 >=5 mcg/mL POSIT ZEN Carisoprodol+Meprob Ur Ql Scn <200 >=200 ng/mL NONE DETECTED Methadone Ur Ql Cfm <200 >=200 ng/mL NONE DET ECTED Meperidine Ur Ql Cfm <100 >=100 ng/mL NONE DE TECTED Opiates Ur Ql Cfm <100 >=100 ng/mL NONE DETEC MAGGIE Pregabalin(Lyrica) Ur Ql Cfm <5 >=5 mcg/mL NONE DETECTED Tramadol Ur Ql Cfm <100 >=100 ng/mL NONE DETE CTED Creat Ur-mCnc 171.1 20 - 370 mg/dL NORMAL Creatinine and pH are performed for specimen validity and not diagnostic purposes. pH Ur 5.38 4.5 - 9.0 NORMAL Creatinine and pH are performed for specimen validity and not diagnostic purposes. Alcohol Metabolites Ur Ql Cfm <200 >=200 ng/mL NONE DETECTED Ethyl sulfate Ur Cfm-mCnc <200 >=200 ng/mL NO NE DETECTED Cyclobenzaprine Ur Ql >=10 >=10 ng/mL POSITI VE Norcyclobenzapr Ur Cfm-mCnc 10 >=10 ng/mL POSITIVE Methocarbamol Ur Ql Cfm <500 >=500 ng/mL NONE DETECTED Synthetic Stimulants Ur Ql Cfm <1 >=1 ng/mL NONE DETECTED UPHOLSTERY TECHNICIAN Not Otherwise Specified Ur Ql Cfm <1 >=1 ng/mL NONE DETECTED Synthetic Cannabinoids Ur Ql Cfm <1 >=1 ng/m L NONE DETECTED Hallucinogens/Dissociatives Ur Ql Cfm <1 >=1 ng/mL NONE DETECTED Supervisor Ticket Sales Benzodiazepines Ur Ql Cfm <1 >=1 ng/mL NONE DETECTED Supervisor [employer] Opioids Ur Ql Cfm <1 >=1 ng/mL N ONE DETECTED THC Ur Ql Scn <20 >=20 ng/mL NONE DETECTED Reason For Referral No Information Medications Medication SIG (Take, Route, Frequency, Duration) Notes Start Date End Date Status Cyanocobalamin 1000 MCG/ML INJECT 1 ML UNDER THE SKIN ONCE A MONTH Injection for 90 Active diazePAM 5 MG TAKE 1 TABLET BY MOUTH AN HOUR BEFORE MRI DIRECTED. TAKE SECOND TABLET IMMEDIATELY BEFORE MRI. Oral for 1 Days Active Alendronate Sodium 70 MG Oral for 84 Active Fluticasone Propionate 50 MCG/ACT SHAKE LIQUID AND USE 2 SPRAYS IN EACH NOSTRIL EVERY DAY Nasal for 90 Days Active Naproxen 500 MG TAKE 1 TABLET BY MOUTH EVERY 12 HOURS WITH FOOD for 30 Active Fluticasone Propionate 50 MCG/ACT SHAKE LIQUID AND USE 2 SPRAYS IN EACH NOSTRIL EVERY DAY Nasal for 90 J309,Unavailab le Active Gabapentin 300 MG TAKE 1 CAPSULE BY MOUTH TWICE DAILY for 30 Active Vitamin D (Ergocalciferol) 1.25 MG (95180 UT) TAKE 1 CAPSULE BY MOUTH EVERY WEEK Oral for 84 E559,Unavailab le Active Gabapentin 300 MG TAKE 1 CAPSULE BY MOUTH TWICE DAILY Oral for 30 Days Active FeroSul 325 (65 Fe) MG TAKE 1 TABLET BY MOUTH TWICE DAILY Oral for 100 Active traMADol HCl 50 MG TAKE 1 TABLET BY MOUTH TWICE DAILY Oral for 30 Days Active Methocarbamol 750 MG Oral for 2 Active Naproxen 500 MG TAKE 1 TABLET BY MOUTH EVERY 12 HOURS WITH FOOD Oral for 30 Days Active traMADol HCl 50 MG TAKE 1 TABLET BY MOUTH TWICE DAILY Oral for 30 07/24/2024 Active Cyclobenzaprine HCl 10 MG 1 tablet Oral Once a day for 30 days Active Lidocaine 5 % External for 15 Active Cyclobenzaprine HCl 10 MG TAKE 1 TABLET BY MOUTH DAILY Oral for 30 Days Active Ciprofloxacin HCl 500 MG TAKE 1 TABLET B Y MOUTH TWICE DAILY Oral for 6 Active Problems Problem Type SNOMED Code ICD Code Onset Dates Problem Status W/U Status Risk Notes Problem Cervicalgia (56567761) Cervicalgia (M54.2) Active confirmed Problem Long-term current use of drug therapy (184922661) Other bed bug exterminator (current) drug therapy (Z79.899) Active confirmed Problem Arthralgia of the pelvic region and thigh (115365933) Right hip pain (M25.551) Active confirmed Problem Low back pain (303205944) Low back pain (M54.50) Active confirmed Vital Signs Heart Rate 68 /min 12/24/2024 Height-cm 152.4 cm 12/24/2024 Blood pressure diastolic 79 mm Hg 12/24/2024 Weight-kg 63.5 kg 12/24/2024 Height 5ft in 12/24/2024 Blood pressure systolic 134 mm Hg 12/24/2024 Weight 140 lbs 12/24/2024 BMI 27.34 kg/m2 12/24/2024 Encounters Encounter Location Date Provider Diagnosis [facility] [address] [place] [phone] 07/24/2024 Berto Lea [facility] [address] [place] [phone] 12/24/2024 Yoan Wu Right hip pain M25.551 ; Low back pain M54.50 ; Cervicalgia M54.2 and Other detention (current) drug therapy Z79.899 [facility] [address] [place] [phone] 07/24/2024 Anayeli Dill Right hip pain M25.551 ; Low back pain M54.50 ; Cervicalgia M54.2 and Other bed bug exterminator (current) drug therapy Z79.899 [facility] [address] [place] [phone] 12/10/2024 Yoan Wu Right hip pain M25.551 ; Low back pain M54.50 ; Cervicalgia M54.2 and Other detention (current) drug therapy Z79.899 Assessments Encounter Date Diagnosis (ICD Code) Assessment Notes Treatment Notes Treatment Clinical Notes Section Notes 07/24/2024 Right hip pain (ICD-10 - M25.551) 07/24/2024 Low back pain (ICD-10 - M54.50) 12/10/2024 Right hip pain (ICD-10 - M25.551) After discussing the benefit and risk/complication including but not limited bleeding, infection, nerve damage, allergic reaction, spinal fluid leak, paralysis, and of right hip joint intra-articular steroid injection under fluoroscopic guidance were discussed with the patient who verbalized understanding and agrees to proceed today , the procedure was performed without any events, patient tolerated the procedure . Patient will be followed as scheduled. 12/24/2024 Right hip pain (ICD-10 - M25.551) We need to obtain the left right hip MRI study , Dr. Mclain's note as well as the EMG studies before consider further interventional treatment plan she was given tramadol and is aking as needed, UDS today 12/24/2024 Low back pain (ICD-10 - M54.50) We need to obtain the left right hip MRI study , Dr. Mclain's note as well as the EMG studies before consider further interventional treatment plan she was given tramadol and is aking as needed, UDS today 12/10/2024 Low back pain (ICD-10 - M54.50) After discussing the benefit and risk/complication including but not limited bleeding, infection, nerve damage, allergic reaction, spinal fluid leak, paralysis, and of right hip joint intra-articular steroid injection under fluoroscopic guidance were discussed with the patient who verbalized understanding and agrees to proceed today , the procedure was performed without any events, patient tolerated the procedure . Patient will be followed as scheduled. 07/24/2024 Cervicalgia (ICD-10 - M54.2) 07/24/2024 Other bed bug exterminator (current) drug therapy (ICD-10 - Z79.899) 12/10/2024 Cervicalgia (ICD-10 - M54.2) After discussing the benefit and risk/complication including but not limited bleeding, infection, nerve damage, allergic reaction, spinal fluid leak, paralysis, and of right hip joint intra-articular steroid injection under fluoroscopic guidance were discussed with the patient who verbalized understanding and agrees to proceed today , the procedure was performed without any events, patient tolerated the procedure . Patient will be followed as scheduled. 12/24/2024 Cervicalgia (ICD-10 - M54.2) We need to obtain the left right hip MRI study , Dr. Mclain's note as well as the EMG studies before consider further interventional treatment plan she was given tramadol and is aking as needed, UDS today 12/24/2024 Other detention (current) drug therapy (ICD-10 - Z79.899) We need to obtain the left right hip MRI study , Dr. Mclain's note as well as the EMG studies before consider further interventional treatment plan she was given tramadol and is aking as needed, UDS today 12/10/2024 Other detention (current) drug therapy (ICD-10 - Z79.899) After discussing the benefit and risk/complication including [...] was printed After discussing the benefit and risk/complication including but not limited bleeding, infection, nerve damage, allergic reaction, spinal fluid leak, paralysis, and of right hip joint intra-articular steroid injection under fluoroscopic guidance were discussed with the patient who verbalized understanding and agrees to proceed today , the procedure was performed without any events, patient tolerated the procedure . Patient will be followed as scheduled. 12/24/2024 Other High Blood Pressure: Care Instructions material was printed We need to obtain the left right hip MRI study , Dr. Mclain's note as well as the EMG studies before consider further interventional treatment plan she was given tramadol and is aking as needed, UDS today 07/24/2024 Other Body Mass Index: Care Instructions material was printed Plan Of Treatment Pending Test Test Name Order Date EtS (Alcohol Metabolite) - Urine 025 QMP Plus D/L - Urine 12/24/2024 Synthetic Stimulants 12/24/2024 Supervisor Ticket Sales Benzodiazepines 12/24/2024 Synthetic Cannabinoids 12/24/2024 Supervisor Ticket Sales Opioids 12/24/2024 Hallucinogens/Dissociatives 12/24/2024 UPHOLSTERY TECHNICIAN Other 12/24/2024 Marijuana - Urine 12/24/2024 PainComp Medication Compliance - Urine 0 12/24/2024 [facility] Required Information 12/24/2024 Insurance Providers Payer Name Payer Address Payer Phone Subscriber Number Group Number Insured Name Patient Relationship to Insured Coverage Start Date Coverage End Date [facility] [address] [place] [address] [id number] Niya Hodgson Self - patient is the insured Medications Administered Medication Instructions Date of Administration Dosage Notes Hip Inj Intra-articular 12/10/2024 R IGHT HIP INJ Medical (General) History Medical History History ICD Code Vitamin B12 deficiency PMO Vitamin D deficiency anemia labral tear right hip Hospitalization History Reason Date(Month/Year) no hospitalization since last visit
--- OUTSIDE RECORDS SUMMARY | 2025-01-04 09:14 | XMS_ITS ---
Author Organization [facility] Address [address] [place] [address] Care Team Providers Care Surface To Air Weapons Officer Name Role Phone Michael CHARLES, Silvio Unavailable Unavailable Jazmin Yoan Unavailable [phone] Allergies No Known Allergies Results Component Value Reference Range Notes GuzzMobile Profil e Reviewed date:12/27/2024 12:28:24 PM Interpretation: Performing Lab:[facility] (CLIA#: [id number]), [address] [place] [address], Director - Mila Galeas Notes/Report: Analyzed at [facility] (CLIA#: [id number]) - [address] [place] [address] - Claim Benefit Specialist: Mila Kline Certifying Project Manager Industrial: Angelique Alonzo (Remote [id number]) These tests were developed and their performance characteristics determined by [facility]. They have not been cleared or approved by the US Food and Drug Administration. Gabapentin Ur CMP >500 >=5 mcg/mL COMPLIANT: [...] Ql Cfm <1 >=1 ng/mL NONE DETECTED MANAGER CARE Not Otherwise Specified Ur Ql Cfm <1 >=1 ng/mL NONE DETECTED Synthetic Cannabinoids Ur Ql Cfm <1 >=1 ng/m L NONE DETECTED Hallucinogens/Dissociatives Ur Ql Cfm <1 >=1 ng/mL NONE DETECTED Horse Farm Manager Benzodiazepines Ur Ql Cfm <1 >=1 ng/mL NONE DETECTED Horse Farm Manager Opioids Ur Ql Cfm <1 >=1 ng/mL N ONE DETECTED THC Ur Ql Scn <20 >=20 ng/mL NONE DETECTED REASON FOR VISIT right hip inj UDS NEEDED Medications Medication SIG (Take, Route, Frequency, Duration) Notes Start Date End Date Status Fluticasone Propionate 50 MCG/ACT SHAKE LIQUID AND USE 2 SPRAYS IN EACH NOSTRIL EVERY DAY Nasal for 90 Days Active Gabapentin 300 MG TAKE 1 CAPSULE BY MOUTH TWICE DAILY Oral for 30 Days Active traMADol HCl 50 MG TAKE 1 TABLET BY MOUTH TWICE DAILY Oral for 30 Days Active Naproxen 500 MG TAKE 1 TABLET BY MOUTH EVERY 12 HOURS WITH FOOD Oral for 30 Days Active Cyclobenzaprine HCl 10 MG TAKE 1 TABLET BY MOUTH DAILY Oral for 30 Days Active diazePAM 5 MG TAKE 1 TABLET BY MOUTH AN HOUR BEFORE MRI DIRECTED. TAKE SECOND TABLET IMMEDIATELY BEFORE MRI. Oral for 1 Days Active Naproxen 500 MG TAKE 1 TABLET BY MOUTH EVERY 12 HOURS WITH FOOD for 30 Active Gabapentin 300 MG TAKE 1 CAPSULE BY MOUTH TWICE DAILY for 30 Active traMADol HCl 50 MG TAKE 1 TABLET BY MOUTH TWICE DAILY Oral for 30 07/24/2024 Active Cyclobenzaprine HCl 10 MG 1 tablet Oral Once a day for 30 days Active Vitamin D (Ergocalciferol) 1.25 MG (20258 UT) TAKE 1 CAPSULE BY MOUTH EVERY WEEK Oral for 84 E559,Unavailab le Active FeroSul 325 (65 Fe) MG TAKE 1 TABLET BY MOUTH TWICE DAILY Oral for 100 Active Methocarbamol 750 MG Oral for 2 Active Lidocaine 5 % External for 15 Active Ciprofloxacin HCl 500 MG TAKE 1 TABLET B Y MOUTH TWICE DAILY Oral for 6 Active Cyanocobalamin 1000 MCG/ML INJECT 1 ML UNDER THE SKIN ONCE A MONTH Injection for 90 Active Alendronate Sodium 70 MG Oral for 84 Active Fluticasone Propionate 50 MCG/ACT SHAKE LIQUID AND USE 2 SPRAYS IN EACH NOSTRIL EVERY DAY Nasal for 90 J309,Unavailab le Active Vital Signs Blood pressure systolic 134 mm Hg 12/24/19 25 Blood pressure diastolic 79 mm Hg 025 Heart Rate 68 /min 12/24/2024 Height 5ft in 12/24/2024 Weight 140 lbs 12/24/2024 BMI 27.34 kg/m2 12/24/2024 Height-cm 152.4 cm 12/24/2024 Weight-kg 63.5 kg 12/24/2024 Encounters Encounter Location Date Provider Diagnosis [facility] [id number] [place] [address] [address] [place] [address] 12/24/2024 Yoan Wu Right hip pain M25.5 51 ; Low back pain M54.50 ; Cervicalgia M54.2 and Other planogrammer (current) drug therapy Z79.899 Assessments Encounter Date Diagnosis (ICD Code) Assessment Notes Treatment Notes Treatment Clinical Notes Section Notes 12/24/2024 Right hip pain (ICD-10 - M25.551) [...] is aking as needed, UDS today 12/24/2024 Cervicalgia (ICD-10 - M54.2) We need to obtain the left right hip MRI study , Dr. Mclain's note as well as the EMG studies before consider further interventional treatment plan she was given tramadol and is aking as needed, UDS today 12/24/2024 Other planogrammer (current) drug therapy (ICD-10 - Z79.899) We need to obtain the left right hip MRI study , Dr. Mclain's note as well as the EMG studies before consider further interventional treatment plan she was given tramadol and is aking as needed, UDS today 12/24/2024 Other High Blood Pressure: Care Instructions material was printed We need to obtain the left right hip MRI study , Dr. Mclain's note as well as the EMG studies before consider further interventional treatment plan she was given tramadol and is aking as needed, UDS today Plan Of Treatment Treatment Notes Assessment Notes Other High Blood Pressure: Care Instructions material was printed Pending Test Test Name Order Date EtS (Alcohol Metabolite) - Urine 025 QMP Plus D/L - Urine 12/24/2024 Synthetic Stimulants 12/24/2024 Horse Farm Manager Benzodiazepines 12/24/2024 Synthetic Cannabinoids 12/24/2024 Horse Farm Manager Opioids 12/24/2024 Hallucinogens/Dissociatives 12/24/2024 MANAGER CARE Other 12/24/2024 Marijuana - Urine 12/24/2024 PainComp Medication Compliance - Urine 0 12/24/2024 [facility] Required Information 12/24/2024 Next Appt Details Follow Up: prn, Reason: Progress Notes * Niya THOMAS EDOB:1945 ( 79 yo F)Acc No.[id number]:12/24/2024 Progress Notes Patient: Niya MEZA Provider: Kellie Wu MD :1945 A ge:79 Y S ex:Female Date:12/24/2024 Address:[address] [place], [place] [id number] Subjective: * Chief Complaints: * 1 . right hip inj UDS NEEDED. * HPI: * Established Patient: P atient returns for post injection follow-up, patient underwent a right hip joint intra-articular steroid injection at last visit, patient got 75% ? pain relief for a bout 1 week and then pain coming back. , patient states she has been seen by the orthopedic surgeon for the right hip pain prior to see me recently, she has a right hip MRI study as well as the nerve conduction study done but neither is available for my review at this point. Established Patient Questionnaire: 1 . Are you currently taking a Blood Thinner Medication? N o 2 . Do you have an allergy to I.V. Contrast or Shellfish? N o 3 . List any changes to medical history. (eg; Falls, Test, Scans, Blood Work, and Hospitalizations) F alls 4 . Have you been exposed to anyone with COVID in the last 2 weeks? N o 5 . Have you been exposed to anyone with the FLU in the last 72 hours? N o 6 . What is your Pain Level today? (1-10, Scroll and select one) 5 7 . Where is your pain located? R ight Glute,Right Leg 8 . After your last visit, what Percentage of improvement did you experience? 4 5 9 . Are you doing Physical Therapy, Chiropractic, or Massage Therapy? N o 1 0. Are you doing an at home Exercise Program? N o 1 1. What activities or positions increase your Pain? (Scroll to select one or multiple) S tanding,Walking 1 2. What activities or positions decrease your Pain? (Scroll to select one or multiple) L thiago down,Sitting 1 3. How would you describe your Pain? (Scroll to select one or multiple) S tabbing,Aching,Throbbing,Burning,Numbness 1 4. Are you having difficulty sleeping? Y es 1 5. When was the last time you had your blood drawn? (Please enter your best estimate) L ast year 1 6. When was your last Mammogram? (Please put N/A if you are male, for Females please put the best Estimate or Never. ) 2 years 1 7. When was your last Colonoscopy? (Please put the best Estimate or Never. ) 2 years 1 8. Do you need any refills on your medications today? Y es 2 0. Are you Diabetic? N o 2 1. Do you suffer from Constipation? Y es * ROS: G eneral/Constitutional: Denies Change appetite. Denies Chills. Denies Fatigue. Denies Fever. Denies Lightheadedness. ENT: Denies Tinnitus. Denies Dysphagia. Ophthalmologic: Denies Blurred vision. * Medical History: V itamin B12 deficiency, PMO, Vitamin D deficiency, Anemia, Labral tear right hip. * Social History: * Established Patient: S moking D o you smoke? N o Form Scores C ESD-R PMQ-R GPCOG Date 0 12/24/2024 C ESD-R Score 3 1 C ESD-R Risk M oderate Risk (17 - 35) P MQ-R Score 1 2 P MQ-R Risk L ow Risk (0 - 34) G PCOG Score 9 G PCOG Risk N o Risk (9) C ESD-R PMQ-R GPCOG Testing Interval M oderate Risk (every 3 months) C ESD-R PMQ-R GPCOG Next Test Due 0 03/23/2025 S OAPP Date 0 12/24/2024 S OAPP-R Score 1 2 S OAPP-R Risk L ow to Moderate Risk (10 - 15) S OAPP-R Testing Interval L ow to Moderate Risk (every 3 months) C OMM Date 0 12/24/2024 C OMM Score 4 C OMM Risk N egative (< 9) * GPCOG: G PCOG 1 . I am going to give you a name and address. After I have said it, I want you to repeat it. Remember this name and address because I am going to ask you to tell it to me again in a few minutes: Александр Baker, [address], [place]. Max 4 attempts R ead to the patient. 2 . What is the date? (exact only) C orrect 3 . Choose which image indicates the hours of a clock (correct spacing required) C orrect 4 . Which clock shows 10 minutes past eleven o'clock? C orrect 5 . Can you tell me something that happened in the news recently? (Recently = in the last week. If a general answer is given, eg war , lot of rain , ask for details. Only specific answer scores). C orrect 6 . What was the name and address I asked you to remember? First Name = Александр C orrect 6 . What was the name and address I asked you to remember? Last Name = Samuel C orrect 6 . What was the name and address I asked you to remember? Street Number = C orrect 6 . What was the name and address I asked you to remember? Street Name = [facility] C orrect 6 . What was the name and address I asked you to remember? City = [place] C orrect T otal Score (out of 9) 9 * Medications: T aking Fluticasone Propionate 50 MCG/ACT Suspension SHAKE LIQUID AND USE 2 SPRAYS IN EACH NOSTRIL EVERY DAY Nasal , Notes to Pharmacist: [id number],Unavailable, Taking Cyanocobalamin 1000 MCG/ML Solution INJECT 1 ML UNDER THE SKIN ONCE A MONTH Injection , Taking Alendronate Sodium 70 MG Tablet Oral , Taking Vitamin D (Ergocalciferol) 1.25 MG (46002 UT) Capsule TAKE 1 CAPSULE BY MOUTH EVERY WEEK Oral , Notes to Pharmacist: [id number],Unavailable, Taking FeroSul 325 (65 Fe) MG Tablet TAKE 1 TABLET BY MOUTH TWICE DAILY Oral , Taking Methocarbamol 750 MG Tablet Oral , Taking Lidocaine 5 % Patch External , Taking Ciprofloxacin HCl 500 MG Tablet TAKE 1 TABLET BY MOUTH TWICE DAILY Oral , Taking traMADol HCl 50 MG Tablet TAKE 1 TABLET BY MOUTH TWICE DAILY Oral , Taking Cyclobenzaprine HCl 10 MG Tablet 1 tablet Oral Once a day , Taking Naproxen 500 MG Tablet TAKE 1 TABLET BY MOUTH EVERY 12 HOURS WITH FOOD , Taking Gabapentin 300 MG Capsule TAKE 1 CAPSULE BY MOUTH TWICE DAILY , Taking diazePAM 5 MG Tablet TAKE 1 TABLET BY MOUTH AN HOUR BEFORE MRI DIRECTED. TAKE SECOND TABLET IMMEDIATELY BEFORE MRI. Oral , Taking Fluticasone Propionate 50 MCG/ACT Suspension SHAKE LIQUID AND USE 2 SPRAYS IN EACH NOSTRIL EVERY DAY Nasal , Taking Gabapentin 300 MG Capsule TAKE 1 CAPSULE BY MOUTH TWICE DAILY Oral , Taking traMADol HCl 50 MG Tablet TAKE 1 TABLET BY MOUTH TWICE DAILY Oral , Taking Naproxen 500 MG Tablet TAKE 1 TABLET BY MOUTH EVERY 12 HOURS WITH FOOD Oral , Taking Cyclobenzaprine HCl 10 MG Tablet TAKE 1 TABLET BY MOUTH DAILY Oral , Medication List reviewed and reconciled with the patient * Allergies: N .K.D.A. Objective: * Vitals: H t: 5ft, Wt: 140 lbs, BP: 134/79 mm Hg, Pain scale: 5 1-10, HR: 68 /min, BMI: 27.34 Index, Ht-cm: 152.4 cm, [...] ervicalgia - M54.2 4 . O ther fci (current) drug therapy - Z79.899 W e need to obtain the left right hip MRI study , Shruthi Mclain's note as well as the EMG studies before consider further interventional treatment plan s he was given tramadol and is aking as needed, UDS today Plan: * Treatment: 2. C ervicalgia L AB: EtS (Alcohol Metabolite) - Urine (Collection Date & Time - 12/24/2024 03:44 PM) L AB: QMP Plus D/L - Urine (Collection Date & Time - 12/24/2024 03:44 PM) L AB: Synthetic Stimulants (Collection Date & Time - 12/24/2024 03:44 PM) L AB: Horse Farm Manager Benzodiazepines (Collection Date & Time - 12/24/2024 03:44 PM) L AB: Synthetic Cannabinoids (Collection Date & Time - 12/24/2024 03:44 PM) L AB: Horse Farm Manager Opioids (Collection Date & Time - 12/24/2024 03:44 PM) L AB: Hallucinogens/Dissociatives (Collection Date & Time - 12/24/2024 03:44 PM) L AB: MANAGER CARE Other (Collection Date & Time - 12/24/2024 03:44 PM) L AB: Marijuana - Urine (Collection Date & Time - 12/24/2024 03:44 PM) L AB: PainComp Medication Compliance - Urine (Collection Date & Time - 12/24/2024 03:44 PM) L AB: [facility] Required Information (Collection Date & Time - 12/24/2024 03:44 PM) 3. O thers Notes: High Blood Pressure: Care Instructions material was printed * Labs: * L ab: [facility] Healthcare Profile (Collection Date & Time - 12/24/2024 03:44 PM) Value Reference Range G abapentin Ur CMP >500 >=5 - mcg/mL * B ioDetect EXPECTED - * 6 DEENA Ur Ql Cfm <10 >=10 - ng/mL * A lcohol Metabolites Ur Ql Cfm <200 >=200 - ng/ mL * E thyl sulfate Ur Cfm-mCnc <200 >=200 - ng/mL * A mphetamines Ur Ql Cfm <100 >=100 - ng/mL * B enzodiaz Ur Ql Cfm <50 >=50 - ng/mL * B uprenorphine Ur Ql Cfm <1 >=1 - ng/mL * B ZE Ur Ql Cfm <50 >=50 - ng/mL * F entanyl+Norfentanyl Ur Ql Cfm <5 >=5 - ng/m L * G abapentin Ur Ql >=5 >=5 - mcg/mL * C arisoprodol+Meprob Ur Ql Scn <200 >=200 - ng/ mL * M ethadone Ur Ql Cfm <200 >=200 - ng/mL * M eperidine Ur Ql Cfm <100 >=100 - ng/mL * O piates Ur Ql Cfm <100 >=100 - ng/mL * T ramadol Ur Ql Cfm <100 >=100 - ng/mL * C reat Ur-mCnc 171.1 20 - 370 - mg/dL * p H Ur 5.38 4.5 - 9.0 - * N PS Not Otherwise Specified <1 >=1 - ng/mL * M ethocarbamol Ur CMP <500 A >=500 - ng/mL * G abapentin Ur Cfm-mCnc >500 >=5 - mcg/mL * P regabalin(Lyrica) Ur Ql Cfm <5 >=5 - mcg/mL * M ethocarbamol Ur Ql Cfm <500 >=500 - ng/mL * H allucinogens/Dissociatives Ur Ql Cfm <1 >=1 - ng/mL * D esigner Benzodiazepines Ur Ql Cfm <1 >=1 - ng/mL * D esigner Opioids Ur Ql Cfm <1 >=1 - ng/mL * T HC Ur Ql Scn <20 >=20 - ng/mL * C yclobenzaprine Ur CMP 10 >=10 - ng/mL * C yclobenzaprine Ur Ql >=10 >=10 - ng/mL * N orcyclobenzapr Ur Cfm-mCnc 10 >=10 - ng/mL * S ynthetic Stimulants Ur Ql Cfm <1 >=1 - ng/m L * S ynthetic Cannabinoids Ur Ql Cfm <1 >=1 - ng /mL * B enzodiaz Ur CMP <50 A >=50 - ng/mL * T ramadol Ur CMP <100 A >=100 - ng/mL * [employer]clinicalworks, support 10/2024 09:30:07 : This order was created by the Interface. * Follow Up: p rn * Billing Information: * Visit Code: 69873 Office Visit, Est Pt., Level 3. * Procedure Codes: * Electronic signature of Yoan Wu MD on 01/04/2025 at 09:13 AM CDT Sign off status: Pending * Provider: Kellie Wu MD Date: 12/24/2024 Generated for Ednai ng/Faxing/eTransmitting on: 01/04/2025 09:13 AM CDT History and Physical [...] Falls, Test, Scans, Blood Work, and Hospitalizations): Falls 4. Have you been exposed to anyone with COVID in the last 2 weeks?: No 5. Have you been exposed to anyone with the FLU in the last 72 hours?: No 6. What is your Pain Level today? (1-10, Scroll and select one): 5 7. Where is your pain located?: Right Gl [place],Right Leg 8. After your last visit, wh at Percentage of improvement did you experience?: 45 9. Are you doing Physical Therapy, Chiro practic, or Massage Therapy?: No 10. Are you doing an at home Exercise Pr ogram?: No 11. What activities or posit ions increase your Pain? (Scroll to select one or multiple): Standing,Walking 12. What activities or posit ions decrease your Pain? (Scroll to select one or multiple): Lying down,Sitting 13. How would you describe y our Pain? (Scroll to select one or multiple): Stabbing,Aching,Throbbing,Burning,Numbness 14. Are you having difficulty sleeping?: Yes 15. When was the last time y ou had your blood drawn? (Please enter your best estimate): Last year 16. When was your last Mammo gram? (Please put N/A if you are male, for Females please put the best Estimate or Never. ): 2 years 17. When was your last Colon oscopy? (Please put the best Estimate or Never. ): 2 years 18. Do you need any refills on your medi cations today?: Yes 20. Are you Diabetic?: No 21. Do you suffer from Constipation?: Ye s Examination Category Sub-Category Detail Notes Category Not [...]
[2025-01-04] MEDS: SODIUM CHLORIDE 0.9% IV 1,000 ML 999 ML IV CONT ×2 (09:21→09:22)
[2025-01-04 09:24] LABS: Alanine Aminotransferase 23 U/L (6-35); Albumin Level 3.6 g/dL (3.5-5.1); Alkaline Phosphatase 67 U/L (38-126); Anion Gap 7 mmol/L (4-12); Aspartate Amino Transferase 36 U/L (14-36); Bilirubin,Total 2.2 mg/dL (0.2-1.3); Blood Urea Nitrogen 22 mg/dL (7-17); Calcium 8.7 mg/dL (8.4-10.2); Carbon Dioxide 24 mmol/L (22-30); Chloride 105 mmol/L (98-107); Estimated CRCL calculation 34 ml/min; Estimated Glomerular Filt Rate 54; Glucose 149 mg/dL (65-110); Potassium 3.8 mmol/L (3.4-5.0); Sodium 136 mmol/L (137-145)
[2025-01-04 09:28] LABS: CRP 2.5 mg/dL (<1.0); INR 1.1; Partial Thromboplastin Time 28.3 Seconds (22.3-36.8); Prothrombin Time 14.2 Seconds (11.1-14.7)
[2025-01-04 09:36] LABS: Add Urine Microscopic? NO; Appearance Urine Clear (Clear); Bilirubin Urine Negative (Negative); Blood Urine Negative (Negative); Color Urine Yellow (Yellow); Glucose Urine UA Negative (Negative); Ketones Urine Trace mg/dL (Negative); Leukocyte Esterase Ur Negative LEU/UL (Negative); Nitrate Urine Negative (Negative); Protein Urine Negative (Negative); Specific Grav Ur 1.021 (1.001-1.035); pH Urine 5.5 (5.0-9.0)
[2025-01-04 10:11] LABS: Influenza A QL RT-PCR Negative (Negative); Influenza B QL RT-PCR Negative (Negative); RSV RNA, RT-PCR Negative (Negative); SARS-CoV-2 RNA PCR Negative (Negative)
--- NOTE | 2025-01-04 10:19 | PC.NURSE ---
Ambulated to bathroom. Tolerated well.
[2025-01-04 10:44] LABS: Lactic Acid Reflex 1.2 mmol/L (0.7-2.0)
== END 2025-01-04 11:52 | disposition home or self-care (01) ==
PROVIDERS: Emergency Provider Emergency Medicine; PCP Internal Medicine
DX: R53.1 Weakness (principal); Z20.822 Contact with and (suspected) exposure to COVID-19; K58.9 Irritable bowel syndrome, unspecified; N28.9 Disorder of kidney and ureter, unspecified; M81.0 Age-related osteoporosis without current pathological fracture; Z86.2 Personal history of diseases of the blood and blood-forming organs and certain disorders involving the immune mechanism; Z90.49 Acquired absence of other specified parts of digestive tract; Z90.710 Acquired absence of both cervix and uterus; R94.31 Abnormal electrocardiogram [ECG] [EKG]
CPT/HCPCS: 36415; 71046; 74177; 80053; 81003; 83605; 85025; 85610; 85730; 86140; 87040; 87637; 93005; 96360; 99284; J7030; Q9967

== ENCOUNTER 2025-01-22 09:37 | Outpatient (CLI) | payer MEDICARE, SELFPAY ==
--- NOTE | ~2025-01-22 | US_ITS ---
EXAMINATION: US carotid duplex BI DATE: 01/22/2025 10:35 INDICATION: Syncope TECHNIQUE: Grayscale, color Doppler, and pulsed Doppler images of the cervical carotid arteries were obtained. The degree of vessel stenosis is placed in one of the following categories: normal, <50%, 5 0-69%, >=70% but less than near-occlusion, near-occlusion, or total occlusion. Note that percent sten osis relative to normal distal artery lumen diameter is indirectly measured from velocity measurement s as described by Sivakumar, et al. Radiology 2003; 229:340-346. Notes: Normal: Peak systolic velocity <125 centimeters/sec and no plaque <50%. Peak systolic velocity <125 ( EDV <40; ICA/CCA PSV ratio <2.0; used these factors only a tandem lesions or low cardiac output or co ntralateral disease) 50-69 %: PSV 125-230 (EDV 40-100; ratio 2-4) >= 70% but less than near occlusion: PSV greater than 230 (EDV > 100; ratio> 4.0) Near Occlusion: PSV that is variable; markedly narrowed lumen Occlusion: Absent flow on color/spectral Doppler and no lumen on florian scale. COMPARISON: None. FINDINGS: RIGHT: The right common carotid artery (CCA) peak systolic velocity (PSV) is 83 cm/s. The right internal car otid artery (ICA) PSV is 69 cm/s. The right ICA end-diastolic velocity (EDV) is 23 cm/s. The right IC A/CCA PSV ratio is 0.8. The external carotid artery (ECA) PSV is 73 cm/s. There is antegrade flow in the right vertebral artery. LEFT: The left CCA PSV is 80 cm/s. The left ICA PSV is 82 cm/s. The left ICA EDV is 31 cm/s. The left ICA/C CA PSV ratio is 1.1. The ECA PSV is 68 cm/s. There is antegrade flow in the left vertebral artery. IMPRESSION: 1. Less than 50% stenosis in the right internal carotid artery by sonographic criteria. 2. Less than 50% stenosis in the left internal carotid artery by sonographic criteria. Reviewed, dictated and finalized at location A. IMPRESSION: 1. Less than 50% stenosis in the right internal carotid artery by sonographic ambar zazueta. 2. Less than 50% stenosis in the left internal carotid artery by sonographic anum saavedra.
--- NOTE | ~2025-01-22 | CT_ITS ---
EXAMINATION: CT BRAIN W/O DATE: 01/22/2025 10:19 INDICATION: Syncope TECHNIQUE: Computed tomography (CT) of the head was performed without intravenous contrast. The dose- length product was 529.67 mGy-cm. Automated exposure control and iterative reconstruction technique w ere employed. COMPARISON: No prior studies for comparison. FINDINGS: There are scattered mild periventricular and subcortical white matter changes, most likely related to small vessel ischemic disease (microangiopathy). 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 There is intracranial atherosclerosis. No ventriculomegaly or midline shift. Midline sagittal images demonstrate a normal corpus callosum, c raniovertebral junction and sella turcica. Basilar cisterns are patent. Paranasal sinuses and mastoids are pneumatized. No depressed skull fractures. IMPRESSION: 1. No acute intracranial abnormality. 2: Chronic left centrum semiovale infarction. Reviewed, dictated and finalized at location A.
--- OUTSIDE RECORDS SUMMARY | 2025-01-22 10:18 | XMS_ITS | Clinical Summary ---
Author Organization [facility] Address [address] [place] [address] Care Team Providers Care Band Salvager Name Role Phone Duane Sanches MD Primary Care Provider + [phone] Source Comments [facility],non-owned Affiliates and Associated Physician Practices is amultiple site organization consisting of ambulatory clinics and hospital sitesin [place], [place], [place] and [place]. This disclosure is being madepursuant to the Care Everywhere program and may not contain all information available regarding this patient. Last updated 18.[facility] Allergies Active Allergy Reactions Criticality Noted Date [...] fluticasone propionate (FLONASE) 50 MCG/ACT nasal spray [place] 3 sprays into each nostril once daily [...] complete this topic MENINGOCOCCAL (Group B) VACCINE SHARED DECISION-MAKING Aged Out No longer eligible based on patient's age to complete this topic MENINGOCOCCAL GROUPS A/C/Y/W VACCINE Aged Out No longer eligible based on patient's age to complete this topic Care Teams Band Salvager Relationship Specialty Start Date End Date Duane Sanches MD [address] [address] [place] [address] PCP - General 08/01/19
--- OUTSIDE RECORDS SUMMARY | 2025-01-22 10:18 | XMS_ITS | CONTINUITY OF CARE DOCUMENT ---
Author Name josejanae josejanae Address Unknown Organization [facility] Address [address] [place] [address] Phone [phone] Care Team Providers Care Comb Machine Operator Name Role Phone Shawn Zelaya MD Unavailable Duane Sanches MD Unavailable Duane Sanches MD Unavailable [phone] PROBLEMS Condition Status Date Provider Notes Family History of Sudden Cardiac : active ? Kyle Garcia MD Chest pain-type to be determined active Kyle Garcia MD Family Hx heart disease active Kyle Garcia MD Hypercholesterolemia active Kyle Garcia MD Abnormal EKG active Shawn Zelaya MD ENCOUNTERS Date Type Provider Location Encounter Diag nosis - In-person encounter Office Visit Shawn Zelaya MD [facility] Abnormal EKG - In-person encounter Office Visit Kyle Garcia MD [facility] Family History of Sudden Cardiac :Chest pain-type to be determinedFamily Hx heart diseaseHypercholesterolemia VITAL SIGNS Date Observation Value Provider Body Mass Index (Ratio) 30.66 kg/m2 Felisa Zelaya MD blood pressure, resting No Kill cayla Leiva blood pressure, diastolic 78 mm[Hg] Ki albin Leiva blood pressure, systolic 122 mm[Hg] Natalie Leiva oxygen saturation, oximetry 99 % Shirley Leiva respiratory rate E&M 16 /min [place] pulse rate 94 /min [place] weight E&M 157 [lb_av] Shirley Leiva height E&M 60 [in_i] Shirley Leiva blood pressure, diastolic, left arm 74 mm [Hg] Simona Montoya blood pressure, systolic, left arm 153 mm [Hg] Simona Montoya blood pressure, diastolic, right arm 79 m m[Hg] Simona Montoya blood pressure, systolic, right arm 151 m m[Hg] Simona Montoya pulse rate 66 /min Simona Montoya blood pressure, diastolic 74 mm[Hg] Pa jung Montoya blood pressure, systolic 153 mm[Hg] Vikki sommer Montoya oxygen saturation, oximetry 96 % Simona Montoya Body Mass Index (Ratio) 30.27 kg/m2 [facility] E&M 15 /min Simona Montoya [...] MD number of grandchildren Shawn Zelaya MD [facility] smoking status Never smoker Shirley [facility] smoking status Never smoker Simona Fish [...] Payer name Policy type / Coverage type [employer] party ID [employer] MEDICARE ADVANTAGE ST 0 003 (HMO POS) Medicare [id number] ADVANCE DIRECTIVES Name Date DISCUSSED - NO [...]
--- OUTSIDE RECORDS SUMMARY | 2025-01-22 10:18 | XMS_ITS | Patient Health Record ---
Author Organization [facility] Address [address] [place] [address] Care Team Providers Care Grid Caster Name Role Phone Michael CHARLES, Silvio Unavailable Unavailable Yoan Wu Unavailable [phone] Anayeli Dill PA-C Unavailable [phone] Berto Lea Unavailable [phone] Allergies No Known Allergies Results Component Value Reference Range Notes [employer] Profil e Reviewed date:12/27/2024 12:28:24 PM Interpretation: Performing Lab:[facility] (CLIA#: [id number]), [address] [place] [address], Director - Mila Galeas Notes/Report: These tests were developed and their performance characteristics determined by [facility]. They have not been cleared or approved by the US Food and Drug Administration. Certifying Underground Conduit Installer: Angelique Alonzo (Remote [id number]) Analyzed at [facility] (CLIA#: [id number]) - [address] [place] [address] - Orthopedic Dentist: Mila Kline Gabapentin Ur CMP >500 >=5 [...] Ql Cfm <1 >=1 ng/mL NONE DETECTED CAMP BOSS Not Otherwise Specified Ur Ql Cfm <1 >=1 ng/mL NONE DETECTED Synthetic Cannabinoids Ur Ql Cfm <1 >=1 ng/m L NONE DETECTED Hallucinogens/Dissociatives Ur Ql Cfm <1 >=1 ng/mL NONE DETECTED Migration Agent Benzodiazepines Ur Ql Cfm <1 >=1 ng/mL NONE DETECTED Migration Agent Opioids Ur Ql Cfm <1 >=1 ng/mL [...] 30 Active Vitamin D (Ergocalciferol) 1.25 MG (16395 UT) TAKE 1 CAPSULE BY MOUTH EVERY [...] Status W/U Status Risk Notes Problem Cervicalgia (84461961) Cervicalgia (M54.2) Active confirmed Problem Long-term current use of drug therapy (540116527) Other halfway (current) drug therapy (Z79.899) Active confirmed Problem Arthralgia of the pelvic region and thigh (714457227) Right hip pain (M25.551) Active confirmed Problem Low back pain (041159413) Low back pain (M54.50) Active confirmed Vital Signs Heart Rate 68 /min 12/24/2024 Height-cm 152.4 cm 12/24/2024 Blood pressure diastolic 79 mm Hg 12/24/2024 Weight-kg 63.5 kg 12/24/2024 Height 5ft in 12/24/2024 Blood pressure systolic 134 mm Hg 12/24/2024 Weight 140 lbs 12/24/2024 BMI 27.34 kg/m2 12/24/2024 Encounters Encounter Location Date Provider Diagnosis [facility] [address] [place] [phone] 07/24/2024 Anayeli Dill Right hip pain M25.551 ; Low back pain M54.50 ; Cervicalgia M54.2 and Other lead business analyst (current) drug therapy Z79.899 [facility] [address] [place] [phone] 12/10/2024 Yoan Wu Right hip pain M25.551 ; Low back pain M54.50 ; Cervicalgia M54.2 and Other lead business analyst (current) drug therapy Z79.899 [facility] [address] [place] [phone] 12/24/2024 Yoan Wu Right hip pain M25.551 ; Low back pain M54.50 ; Cervicalgia M54.2 and Other lead business analyst (current) drug therapy Z79.899 [facility] [address] [place] [phone] 07/24/2024 Berto Lea Assessments Encounter Date Diagnosis (ICD Code) Assessment [...] is aking as needed, UDS today 07/24/2024 Cervicalgia (ICD-10 - M54.2) 12/10/2024 Low back pain (ICD-10 - M54.50) [...] is aking as needed, UDS today 12/10/2024 Cervicalgia (ICD-10 - M54.2) After discussing [...] Patient will be followed as scheduled. 07/24/2024 Other lead business analyst (current) drug therapy (ICD-10 - Z79.899) 12/10/2024 Other halfway (current) drug therapy (ICD-10 - Z79.899) After [...] will be followed as scheduled. 12/24/2024 Other lead business analyst (current) drug therapy (ICD-10 - Z79.899) We need to obtain the left right hip MRI study , Dr. Mclain's note as well as the EMG studies before consider further interventional treatment plan she was given tramadol and is aking as needed, UDS today 07/24/2024 Other Body Mass Index: Care Instructions material was printed 12/10/2024 Other Body Mass Index: Care Instructions [...] as needed, UDS today Plan Of Treatment Pending Test Test Name Order Date EtS (Alcohol Metabolite) - Urine 025 QMP Plus D/L - Urine 12/24/2024 Synthetic Stimulants 12/24/2024 Migration Agent Benzodiazepines 12/24/2024 Synthetic Cannabinoids 12/24/2024 Migration Agent Opioids 12/24/2024 Hallucinogens/Dissociatives 12/24/2024 CAMP BOSS Other 12/24/2024 Marijuana - Urine 12/24/2024 PainComp Medication Compliance - Urine 0 12/24/2024 [facility] Required Information 12/24/2024 Insurance Providers Payer Name Payer Address Payer Phone Subscriber Number Group Number Insured Name Patient Relationship to Insured Coverage Start Date Coverage End Date [facility] [address] [place] [address] [id number] Niya Hodgson Self - patient is the insured Medications Administered Medication Instructions Date of Administration Dosage Notes Hip Inj Intra-articular 12/10/2024 R IGHT HIP INJ Medical (General) History Medical History History ICD Code Vitamin B12 deficiency PMO Vitamin D deficiency anemia labral tear right hip Hospitalization History Reason Date(Month/Year) no hospitalization since last visit
--- OUTSIDE RECORDS SUMMARY | 2025-01-22 10:18 | XMS_ITS ---
Author Organization [facility] Address [address] [place] [address] Care Team Providers Care Securities Research Analyst Name Role Phone Michael CHARLES, Silvio Unavailable Unavailable Yoan Wu Unavailable [phone] Allergies No Known Allergies REASON FOR VISIT RIGHT HIP INJ Medications Medication SIG (Take, Route, Frequency, Duration) Notes Start Date End Date Status Vitamin D (Ergocalciferol) 1.25 MG (66535 UT) TAKE 1 CAPSULE BY MOUTH EVERY [...] 12/10/2024 Encounters Encounter Location Date Provider Diagnosis [facility] [address] [place] [address] 12/10/2024 Yoan Wu Right hip pain M25.5 51 ; Low back pain M54.50 ; Cervicalgia M54.2 and Other jail (current) drug therapy Z79.899 Assessments Encounter Date [...] will be followed as scheduled. 12/10/2024 Other jail (current) drug therapy (ICD-10 - Z79.899) After [...] Niya THOMAS EDOB:1945 ( 79 yo F)Acc No.[id number]:12/10/2024 Patient: Niya MEZA Provider: Kellie Wu MD :1945 A ge:79 Y S ex:Female Date:12/10/2024 Address:[address] [place] [address] [facility] Subjective: * Chief Complaints: * R [...] Tablet Oral Vitamin D (Ergocalciferol) 1.25 MG (96602 UT) Capsule TAKE 1 CAPSULE BY MOUTH [...] Oral Taking Vitamin D (Ergocalciferol) 1.25 MG (30234 UT) Capsule TAKE 1 CAPSULE BY MOUTH [...] ervicalgia - M54.2 4 . O ther intermediate frame tender (current) drug therapy - Z79.899 After discussing [...] MD * Procedure Codes: 2 0610 DRAIN/INJECT, JOINT/CMTBL19112 DRAIN/INJ JOINT/BURSA W/US * Billing Information: * Visit Code: * Procedure Codes: 70215 DRAIN/INJECT, JOINT/BURSA. 16938 DRAIN/INJ JOINT/BURSA W/US. * DENTIAL DOOR UNIT INSTALLER Sign off status: Completed true * Provider: Kellie Wu MD Date: 0 12/10/2024 Generated for Printi ng/Ryan/eTransmitting on: 0 01/22/2025 10:18 AM CDT History and Physical Notes * [...] Where is your pain located?: Right Gl yenni,Right Leg 8. After your last visit, wh [...]
--- OUTSIDE RECORDS SUMMARY | 2025-01-22 10:18 | XMS_ITS | Continuity of Care Document ---
Author Organization Located within [facility] Address [address] [place] [address] [place] [address] Phone Care Team Providers Care Client Success Director Name Role Phone Jesse Moore MD Unavailable Unavailable Advance Directives Directive Yes / No Effective Date File Name No Information Encounters Encounter Description Practice Location Reason(s) For Visit Diagnoses Date Provider Providers Copied on Encounter [facility], [address] [place], [place], [id number], [place] tel:[phone] [facility] No Information 1-200 5 Teresa Molina. [address] [facility] [address], [place], [place], [address], [place]. tel:[phone] Family History Family Member Type Diagnosis Age At Onset No Information Payers Payer name Insurance type Covered green party ID Authoriza tion(s) No Information Social History [...]
--- OUTSIDE RECORDS SUMMARY | 2025-01-22 10:19 | XMS_ITS | Referral Summary ---
Author Organization [facility] Care Team Providers Care Activities Specialist Name Role Phone Duane Sanches MD Primary Care Provider Encounters Date Type Department Care Team Description 01/01/2025 Telephone [facility] Radiology [address] [place] [address] Amrita Rosario RN from Last 3 Months [...] ORAL)Indication s:supplement Take 1 tablet/capsule by mouth racquet maker before breakfast Active cholecalciferol , vitamin D3, [...] Plan of Treatment Not on file Insurance [facility] MEDICARE ADVANTAGE [facility] MDCR HMO REF Advance Directives For more information, please contact: [phone] * Full Code (Latest Code Status on File) Date Activated Date Inactivated Comments 01/29/2024 12:45 PM 01/30/2024 5:33 PM Care Teams Activities Specialist Relationship Specialty Start Date End Date Duane Sanches MD [address] [place] [address] PCP - General Internal Medicine 12/25/23
--- OUTSIDE RECORDS SUMMARY | 2025-01-22 10:19 | XMS_ITS | Clinical Summary ---
Author Organization [facility] Care Team Providers Care Director Of Religious Activities Name Role Phone Duane Sanches MD Primary Care Provider [phone] Allergies Active Allergy Reactions Criticality Noted Date [...] ORAL)Indication s:supplement Take 1 tablet/capsule by mouth early childhood before breakfast Active cholecalciferol , vitamin D3, [...] 01/01/2025 Telephone [facility] Radiology [address] [place] [address] Amrita Rosario RN from Last [...] Fall Risk Assessment 01/29/2025 01/30/2024 Insurance MEDICARE ADVANTAGE MDCR HMO REF Advance Directives For more information, please contact: [phone] * Full Code (Latest Code Status on File) Date Activated Date Inactivated Comments 01/29/2024 12:45 PM 01/30/2024 5:33 PM Care Teams Director Of Religious Activities Relationship Specialty Start Date End Date Duane Sanches MD [address] [place] [address] PCP - General Internal Medicine 12/25/23
--- OUTSIDE RECORDS SUMMARY | 2025-01-22 10:19 | XMS_ITS ---
Author Organization [facility] Address [address] [place] [address] [address] [place] [address] Care Team Providers Care Mold Filler And Drainer Name Role Phone Michael CHARLES, Berto Henry Unavailable [phone] Medications Medication SIG (Take, Route, Fr equency, Duration) Notes Start Date End Date Status traMADol HCl 50 MG TAKE 1 TABLET BY RADU TH TWICE DAILY Oral for 30 07/24/2024 Active Encounters Encounter Location Date Provider Diagnosis [facility] [address] [place] [address] 07/24/2024 Berto Lea Plan Of Treatment Medication Medication Name Sig Start Date Stop Date Notes traMADol HCl 50 MG TAKE 1 TABLET BY RADU TH TWICE DAILY Oral for 30 07/24/2024 Progress Notes * Niya THOMAS EDOB:1945 ( 78 yo F)Acc No.[id number]:07/24/2024 Patient: Shruthi SEAMAN Niya Guajardo :1945 A ge:78 Y S ex:Female Phone: Address:[address] [place] [address], [place], [address] * Refills Refill traMADol HCl Tablet, 50 MG, Oral, 60 Each, TAKE 1 TABLET BY MOUTH TWICE DAILY, 30, Refills=2 * true * Date: Generated for Ednai ng/Faariannag/eTransmitting on: 0 01/22/2025 10:18 AM CDT
--- OUTSIDE RECORDS SUMMARY | 2025-01-22 10:19 | XMS_ITS ---
Author Organization [facility] Address [address] [place] [address] Care Team Providers Care Top Spotter Name Role Phone Michael CHARLES, Silvio Unavailable Unavailable Jazmin Yoan Unavailable [phone] Allergies No Known Allergies Results Component Value Reference Range Notes [employer] Profil e Reviewed date:12/27/2024 12:28:24 PM Interpretation: Performing Lab:[facility] (CLIA#: [id number]), [address] [place] [address], Director - Mila Galeas Notes/Report: Analyzed at [facility] (CLIA#: [id number]) - [address] [place] [address] - Fire Extinguisher Sprinkler Inspector: Mila Kline Certifying Chair Inspector And Leveler: Angelique Alonzo (Remote [id number]) These tests were developed and their performance characteristics determined by [facility]. They have not been cleared or approved [...] Ql Cfm <1 >=1 ng/mL NONE DETECTED ROADWAY ENGINEER Not Otherwise Specified Ur Ql Cfm <1 >=1 ng/mL NONE DETECTED Synthetic Cannabinoids Ur Ql Cfm <1 >=1 ng/m L NONE DETECTED Hallucinogens/Dissociatives Ur Ql Cfm <1 >=1 ng/mL NONE DETECTED Hat Blocker Benzodiazepines Ur Ql Cfm <1 >=1 ng/mL NONE DETECTED Hat Blocker Opioids Ur Ql Cfm <1 >=1 ng/mL [...] days Active Vitamin D (Ergocalciferol) 1.25 MG (23596 UT) TAKE 1 CAPSULE BY MOUTH EVERY [...] 12/24/2024 Encounters Encounter Location Date Provider Diagnosis [facility] [address] [place] [address] [address] [place] [address] 12/24/2024 Yoan Wu Right hip pain M25.5 [...] aking as needed, UDS today 12/24/2024 Other jail (current) drug therapy (ICD-10 - Z79.899) We [...] D/L - Urine 12/24/2024 Synthetic Stimulants 12/24/2024 Hat Blocker Benzodiazepines 12/24/2024 Synthetic Cannabinoids 12/24/2024 Hat Blocker Opioids 12/24/2024 Hallucinogens/Dissociatives 12/24/2024 ROADWAY ENGINEER Other 12/24/2024 Marijuana - Urine 12/24/2024 PainComp Medication Compliance - Urine 0 12/24/2024 [facility] Required Information 12/24/2024 Next Appt Details Follow Up: prn, Reason: Progress Notes * Niya THOMAS EDOB:1945 ( 79 yo F)Acc No.[id number]:12/24/2024 Progress Notes Patient: Niya MEZA Provider: Kellie Wu MD :1945 A ge:79 Y S ex:Female Date:12/24/2024 Address:[address] [place], [place] [address] Subjective: * Chief Complaints: * r ight hip inj UDS NEEDED * HPI: * Established Patient: P atient [...] you suffer from Constipation? Y es * Pain Management:: We have evaluated the patient using PMQ-R, CESD-R and GPCOG assessments. Based on data collected from the PMQ-R, we are evaluating the risk for abuse, misuse and diversion. Furthermore, we are screening the patient for depression using the CESD-R assessment. Lastly, we are utilizing GPCOG to ensure that the current treatment plan is not impairing cognition. URINE DRUG SCREENING MEDICAL NECESSITY: The [place] Federation of State Medical Boards, APS, AAPM, and ASIPP all recommend routine UDTs for patients on chronic opioids. Chronic pain patients not receiving controlled substances can also benefit from random UDT since there are higher rates of drug misuse, abuse, and addiction in this population. Caring for and treating patients on controlled substances poses unique challenges for both physicians and their staff. These challenges are serious and include: patients providing false and misleading medical histories, not maintaining compliance with therapeutic drug regimens and using illicit drugs. Patients non-compliant behavior with prescribed medications, such as combining medications or using illicit drugs with legally prescribed ones, can result in harm to themselves and others. So the urine Drug screening can help improve patient safety as it relates to accurately establishing medication use, identifying dangerous drug to drug cross-reactions and avoiding false patient dismissals based on inconsistent immunoassay tests. -To monitor patient's compliance -To monitor patient's safety -To monitor patient's pain control -To monitor any side effects, cross-reactions Urine Drug Screen completed today for suspicion of illicit drug use and compliance monitoring measures. Discussed side effects of opioid and medication therapies. Discussed potential for addiction/tolerance/abuse/diversion. Discussed Opioid Agreement in detail and answered all questions. Discussed side effects of NSAIDs and other pain medication and muscle relaxants in detail. Discussed possibility of GI bleed, Gastric irritation or esophagitis from pain medications including NSAIDs. Also discussed possibility of cardiac side effects of NSAIDS as well. Patient verbalized understanding. The risks of narcotic therapy including potential addiction/abuse, sedation, risk for falls, and constipation were discussed. The theory behind hyperalgesia with chronic use was also discussed. Pt is advised that while on these medications he/she is not to drive, operate heavy machinery, climb ladders or heights, and they are to use them sparingly for relief of severe pain. The patient understands that if they misuse or do not follow our current plan of care, they may be terminated from my care and will be asked to find another physician. The patient expresses understanding of these issues and questions were answered. Greater than 50% of time spent with the patient today was significant for counseling and coordination of care required for this visit. * ROS: G eneral/Constitutional: Denies Change appetite. Denies Chills. Denies Fatigue. Denies Fever. Denies Lightheadedness. ENT: Denies Tinnitus. Denies Dysphagia. Ophthalmologic: Denies Blurred vision. * Medical History: * Surgical History: * Hospitalization/Major Diagno stic Procedure: * Social History: * Established Patient: S [...] in a few minutes: Александр Baker, [address] [facility], [place]. Max 4 attempts R ead to the [...] you to remember? First Name = Александр Diez orrect 6 . What was the name and address I asked you to remember? Last Name = Samuel C orrect 6 . What was the name and address I asked you to remember? Street Number = C orrect 6 . What was the name and address I asked you to remember? Street Name = [facility] C orrect 6 . What was the name and address I asked you to remember? City = [place] C orrect T otal Score (out of 9) 9 * Medications: T akingFluticasone Propionate 50 MCG/ACT Suspension SHAKE LIQUID AND USE 2 SPRAYS IN EACH NOSTRIL EVERY DAY Nasal , Notes to Pharmacist: [id number],UnavailableCyanocobalamin 1000 MCG/ML Solution INJECT 1 ML UNDER THE SKIN ONCE A MONTH Injection Alendronate Sodium 70 MG Tablet Oral Vitamin D (Ergocalciferol) 1.25 MG (77749 UT) Capsule TAKE 1 CAPSULE BY MOUTH EVERY WEEK Oral , Notes to Pharmacist: [id number],UnavailableFeroSul 325 (65 Fe) MG Tablet TAKE 1 [...] TAKE 1 TABLET BY MOUTH DAILY Oral Medication List reviewed and reconciled with the patientTaking Fluticasone Propionate 50 MCG/ACT Suspension SHAKE LIQUID AND USE 2 SPRAYS IN EACH NOSTRIL EVERY DAY Nasal , Notes to Pharmacist: [id number],UnavailableTaking Cyanocobalamin 1000 MCG/ML Solution INJECT 1 ML UNDER THE SKIN ONCE A MONTH Injection Taking Alendronate Sodium 70 MG Tablet Oral Taking Vitamin D (Ergocalciferol) 1.25 MG (50142 UT) Capsule TAKE 1 CAPSULE BY MOUTH [...] TAKE 1 TABLET BY MOUTH DAILY Oral Medication List reviewed and reconciled with the patient * Allergies: N .K.D.A.no[Allergies Verified] Objective: * Vitals: H t: 5ft, Wt: 140 lbs, BP: 134/79 mm Hg, Pain scale: 5 1-10, HR: 68 /min, BMI: 27.34 Index, Ht-cm: 152.4 cm, Wt-k.5 kg, Body Surface Area: 1.64. * Examination: G eneral Examination: Basil ch is alert and oriented to time, place, [...] ervicalgia - M54.2 4 . O ther jail (current) drug therapy - Z79.899 W e [...] Time - 12/24/2024 03:44 PM) L AB: Hat Blocker Benzodiazepines (Collection Date & Time - 12/24/2024 03:44 PM) L AB: Synthetic Cannabinoids (Collection Date & Time - 12/24/2024 03:44 PM) L AB: Hat Blocker Opioids (Collection Date & Time - 12/24/2024 03:44 PM) L AB: Hallucinogens/Dissociatives (Collection Date & Time - 12/24/2024 03:44 PM) L AB: ROADWAY ENGINEER Other (Collection Date & Time - 12/24/2024 [...] was printed * Labs: * L ab: [facility] Healthcare Profile (Collection Date & Time [...] order was created by the Interface. * Procedure Codes: G 8427 DOC MEDS VERIFIED W/PT OR [id number] PSYCL/NRPSYC TST PHY/QHP 1ST, Modifiers: 59 G0396 ALCOHOL/SUBS INTERV 15-30MN * Follow Up: p rn * Billing Information: * Visit Code: 51465 Office Visit, Est Pt., Level 3. * Procedure Codes: G8427 DOC MEDS VERIFIED W/[place]. [address] PSYCL/NRPSYC TST PHY/QHP 1ST. Modifiers: 59 G0396 ALCOHOL/SUBS INTERV 15-30MN. * Sign off status: Completed true * Provider: Kellie Wu MD Date: 0 12/24/2024 Generated for German metzger/Ryan/eTransmitting on: 0 01/22/2025 10:18 AM CDT History and Physical Notes * HPI (History of Present Illness) Category Sub-Category Detail Notes Category Not es *Pain Management: We have evaluated the patient using PMQ-R, CESD-R and GPCOG assessments. Based on data collected from the PMQ-R, we are evaluating the risk for abuse, misuse and diversion. Furthermore, we are screening the patient for depression using the CESD-R assessment. Lastly, we are utilizing GPCOG to ensure that the current treatment plan is not impairing cognition. URINE DRUG SCREENING MEDICAL NECESSITY: The U.S. Federation of State Medical Boards, APS, AAPM, and ASIPP all recommend routine UDTs for patients on chronic opioids. Chronic pain patients not receiving controlled substances can also benefit from random UDT since there are higher rates of drug misuse, abuse, and addiction in this population. Caring for and treating patients on controlled substances poses unique challenges for both physicians and their staff. These challenges are serious and include: patients providing false and misleading medical histories, not maintaining compliance with therapeutic drug regimens and using illicit drugs. Patients non-compliant behavior with prescribed medications, such as combining medications or using illicit drugs with legally prescribed ones, can result in harm to themselves and others. So the urine Drug screening can help improve patient safety as it relates to accurately establishing medication use, identifying dangerous drug to drug cross-reactions and avoiding false patient dismissals based on inconsistent immunoassay tests. -To monitor patient's compliance -To monitor patient's safety -To monitor patient's pain control -To monitor any side effects, cross-reactions Urine Drug Screen completed today for suspicion of illicit drug use and compliance monitoring measures. Discussed side effects of opioid and medication therapies. Discussed potential for addiction/tolerance/ abuse/diversion. Discussed Opioid Agreement in detail and answered all questions. Discussed side effects of NSAIDs and other pain medication and muscle relaxants in detail. Discussed possibility of GI bleed, Gastric irritation or esophagitis from pain medications including NSAIDs. Also discussed possibility of cardiac side effects of NSAIDS as well. Patient verbalized understanding. The risks of narcotic therapy including potential addiction/abuse, sedation, risk for falls, and constipation were discussed. The theory behind hyperalgesia with chronic use was also discussed. Pt is advised that while on these medications he/she is not to drive, operate heavy machinery, climb ladders or heights, and they are to use them sparingly for relief of severe pain. The patient understands that if they misuse or do not follow our current plan of care, they may be terminated from my care and will be asked to find another physician. The patient expresses understanding of these issues and questions were answered. Greater than 50% of time spent with the patient today was significant for counseling and coordination of care required for this visit. *Established Patient Established Patient Questionnaire: 1. Are [...]
== END 2025-01-22 09:38 | disposition home or self-care (01) ==
PROVIDERS: PCP Internal Medicine; Visit Provider Internal Medicine
DX: I63.81 Other cerebral infarction due to occlusion or stenosis of small artery (principal); R55 Syncope and collapse
CPT/HCPCS: 70450; 93880

== ENCOUNTER 2025-06-17 10:25 | Outpatient (CLI) | payer MEDICARE, SELFPAY ==
--- OUTSIDE RECORDS SUMMARY | 2005-03-28 05:15 | XMS_ITS | Continuity of Care Document ---
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 [address] [facility] [address], [place], [place], [id number], [place]. tel:[phone] Family History Family Member Type Diagnosis Age At Onset No Information Payers Payer name Insurance type Covered democrat ID Authoriza tion(s) No Information Social History Type Description Quantity Date Captured Comments Sex Female Smoking Status No Information Chief Complaint And Reason For Visit No Information Reason For Referral Reason For Referral No Information History Of Present Illness Encounter Date Complaint History Of Prese nt Illness No Information Functional Status Date Functional Assessmen t No Information Instructions Date Instruction Additional Infor mation No Information Assessments Type Assessment Date No Information Patient Care Teams Name Effective Dates (start - stop) Status Members No Information
--- NOTE | ~2025-06-17 | CT_ITS ---
EXAMINATION: CT abdomen pelvis wo/w con DATE: 06/17/2025 11:17 INDICATION: Renal mass TECHNIQUE: Computed tomography (CT) of the abdomen and pelvis was performed without intravenous contrast. The dose-length product was 584.92 mGy-cm. COMPARISON: CT abdomen pelvis 01/04/2025, January 2024 and 11/28/2023 FINDINGS: The liver, spleen, adrenal glands, pancreas are unremarkable. Gallbladder is surgically absent. Probable post ablation change in the left kidney similar to the prior study. There are a few too small to characterize low-attenuation lesions in the kidneys similar to the prior study. Abdominal a boyd is partially calcified but is not aneurysmal. Bladder is unremarkable. No enlarged lymph nodes in the abdomen or pelvis identified. Moderate amount of stool. No dilated bowel loops. Appendix is unremarkable. No free fluid in the abdomen. Multilevel degenerative change in the spine similar to the prior study. IMPRESSION: 1. Probable post ablation change in the left kidney similar to the prior study. 2. No CT evidence for an acute process in the abdomen or pelvis at this time. Reviewed, dictated and finalized at location A.
--- OUTSIDE RECORDS SUMMARY | 2025-06-17 10:54 | XMS_ITS | Clinical Summary ---
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 Active cholecalciferol , vitamin D3, [...] deficiency 04/03/2018 Chest pain 04/12/2015 Hypercholesterolemia 04/12/2015 Surgical History Surgery Date Site/Laterality Comments NECK [...] Pneumococcal vaccine 65+ (2 of 2 - PCV20 or PCV21) 10/12/2016 10/12/2015 Covid-19 Vaccine (3 - 2023-2 5 season) 2024 12/31/2020, 12/03/2020 Fall Risk Assessment 01/29/2025 01/30/2024 Influenza Vaccine (#1) 2025 3, 09/06/2020, 08/19/2019, Additional history exists Insurance [facility] Address: [address] [address] [facility] Address: [address] [address] Advance Directives For more information, please contact: [phone] * Full Code (Latest Code Status on File) Date Activated Date Inactivated Comments 01/29/2024 12:45 PM 01/30/2024 5:33 PM Care Teams Mold Car Pusher Relationship Specialty Start Date End Date Duane Sanches MD [address] [facility] [place] [place] [address] PCP - General Internal Medicine 12/25/23
--- OUTSIDE RECORDS SUMMARY | 2025-06-17 10:54 | XMS_ITS | Patient Health Record ---
Author Organization [facility] Address [address] [place] [address] Care Team Providers Care Chargeback Specialist Name Role Phone Michael CHARLES, Silvio Unavailable Unavailable Shanna Lea Unavailable [phone] Yoan Wu Unavailable [phone] Anayeli Dill PA-C Unavailable Berto Lea Unavailable [phone] Allergies No Known Allergies Results Component Value Reference Range Notes Wi3 Profil e Reviewed date:12/27/2024 12:28:24 PM Interpretation: Performing Lab:[facility] (CLIA#: [id number]), [address] [place] [address], Director - Mila Galeas Notes/Report: These tests were developed and their performance characteristics determined by [facility]. They have not been cleared or approved by the [place] Food and Drug Administration. Certifying Insurance Loss Assessor: Angelique Alonzo (Remote [id number]) Analyzed at [facility] (CLIA#: [id number]) - [address] [place] [address] - Oven Equipment Repairer: Mila Kline Gabapentin Ur CMP >500 >=5 [...] Ql Cfm <1 >=1 ng/mL NONE DETECTED BUS ASSISTANT Not Otherwise Specified Ur Ql Cfm <1 >=1 ng/mL NONE DETECTED Synthetic Cannabinoids Ur Ql Cfm <1 >=1 ng/m L NONE DETECTED Hallucinogens/Dissociatives Ur Ql Cfm <1 >=1 ng/mL NONE DETECTED Patient Ombudsperson Benzodiazepines Ur Ql Cfm <1 >=1 ng/mL NONE DETECTED Patient Ombudsperson Opioids Ur Ql Cfm <1 >=1 ng/mL N ONE DETECTED THC Ur Ql Scn <20 >=20 ng/mL NONE DETECTED Wi3 Profil e Reviewed date:03/22/2025 09:29:24 AM Interpretation: Performing Lab:[facility] (CLIA#: [id number]), [address] [place] [address], Director - Mila Galeas Notes/Report: These tests were developed and their performance characteristics determined by [facility]. They have not been cleared or approved by the US Food and Drug Administration. Certifying Insurance Loss Assessor: Vijaya Irby (Remote [id number]) Analyzed at [facility] (CLIA#: [id number]) - [address] [place] [address] - Oven Equipment Repairer: Mila Kline Benzodiaz Ur CMP <50 >=50 ng/mL NON-COMPLIA NT: Test result indicates patient may not be taking drug prescribed. Cyclobenzaprine Ur CMP <10 >=10 ng/mL PRN - NOT PRESENT: Test result is consistent and expected with prescribed drug. Gabapentin Ur CMP 309 >=5 mcg/mL COMPLIANT: Test result is consistent and expected with prescribed drug. Methocarbamol Ur CMP <500 >=500 ng/mL NON-COM PLIANT: Test result indicates patient may not be taking drug prescribed. Tramadol Ur CMP 57040 >=100 ng/mL COMPLIANT: T est result is consistent and expected with prescribed drug. BioDetect EXPECTED Test result is consistent with [...] >=5 >=5 mcg/mL POSITIVE Gabapentin Ur Cfm-mCnc 309 >=5 mcg/mL POSIT ZEN Carisoprodol+Meprob Ur Ql Scn <200 >=200 ng/mL NONE DETECTED Methadone Ur Ql Cfm <200 >=200 ng/mL NONE DET ECTED Meperidine Ur Ql Cfm <100 >=100 ng/mL NONE DE TECTED Opiates Ur Ql Cfm <100 >=100 ng/mL NONE DETEC MAGGIE Pregabalin(Lyrica) Ur Ql Cfm <5 >=5 mcg/mL NONE DETECTED Tramadol Ur Ql Cfm >=100 >=100 ng/mL POSITIVE Nortramadol Ur Cfm-mCnc >=100 ng/mL POSI TIVE Tramadol Ur Cfm-nc >=100 ng/mL POSITIV E N-Desmethyl Tram Ur Cfm-mCnc 3243 >=100 ng/mL POSITIVE Creat Ur-mCnc 124.9 20 - 370 mg/dL NORMAL Creatinine and pH are performed for specimen validity and not diagnostic purposes. pH Ur 6.41 4.5 - 9.0 NORMAL Creatinine and pH are performed for specimen validity and not diagnostic purposes. Alcohol Metabolites Ur Ql Cfm <200 >=200 ng/mL NONE DETECTED Ethyl sulfate Ur Cfm-mCnc <200 >=200 ng/mL NO NE DETECTED Cyclobenzaprine Ur Ql <10 >=10 ng/mL NONE D ETECTED Methocarbamol Ur Ql Cfm <500 >=500 ng/mL NONE DETECTED Synthetic Stimulants Ur Ql Cfm <1 >=1 ng/mL NONE DETECTED BUS ASSISTANT Not Otherwise Specified Ur Ql Cfm <1 >=1 ng/mL NONE DETECTED Synthetic Cannabinoids Ur Ql Cfm <1 >=1 ng/m L NONE DETECTED Hallucinogens/Dissociatives Ur Ql Cfm <1 >=1 ng/mL NONE DETECTED Patient Ombudsperson Benzodiazepines Ur Ql Cfm <1 >=1 ng/mL NONE DETECTED Patient Ombudsperson Opioids Ur Ql Cfm <1 >=1 ng/mL N ONE DETECTED THC Ur Ql Scn <20 >=20 ng/mL NONE DETECTED Reason For Referral No Information Medications Medication SIG (Take, Route, Frequency, Duration) Notes Start Date End Date Status traMADol HCl 50 MG TAKE 1 TABLET BY MOUTH TWICE DAILY; Duration: 05/04/2025 Active Cyclobenzaprine HCl 10 MG TAKE 1 TABLET BY MOUTH TWICE DAILY; Duration: 90 Active Naproxen 500 MG TAKE 1 TABLET BY MOUTH TWICE DAILY; Duration: 90 Active FeroSul 325 (65 Fe) MG TAKE 1 TABLET BY MOUTH TWICE DAILY Oral; Duration: 100 Active Methocarbamol 750 MG Oral; Duration: 2 Active Lidocaine 5 % External; Duration: 15 Active Gabapentin 300 MG TAKE 1 CAPSULE BY MOUTH TWICE DAILY; Duration: 30 Active Fluticasone Propionate 50 MCG/ACT SHAKE LIQUID AND USE 2 SPRAYS IN EACH NOSTRIL EVERY DAY Nasal; Duration: 90 J309,Unavailab le Active Cyanocobalamin 1000 MCG/ML INJECT 1 ML UNDER THE SKIN ONCE A MONTH Injection; Duration: 90 Active diazePAM 5 MG TAKE 1 TABLET BY MOUTH AN HOUR BEFORE MRI DIRECTED. TAKE SECOND TABLET IMMEDIATELY BEFORE MRI. Oral; Duration: 1 Days Active Alendronate Sodium 70 MG Oral; Duration: 84 Active Fluticasone Propionate 50 MCG/ACT SHAKE LIQUID AND USE 2 SPRAYS IN EACH NOSTRIL EVERY DAY Nasal; Duration: 90 Days Active Vitamin D (Ergocalciferol) 1.25 MG (54357 UT) TAKE 1 CAPSULE BY MOUTH EVERY WEEK Oral; Duration: 84 E559,Unavailab le Active Ciprofloxacin HCl 500 MG TAKE 1 TABLET B Y MOUTH TWICE DAILY Oral; Duration: 6 Active Problems Problem Type SNOMED Code ICD Code Onset Dates Problem Status W/U Status Risk Notes Problem Cervicalgia (01305247) Cervicalgia (M54.2) Active confirmed Problem Long-term current use of drug therapy (466501419) 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 (Z79.899) Active confirmed Problem Arthralgia of the pelvic region and thigh (453185720) Right hip pain (M25.551) Active confirmed Problem Low back pain (299879610) Low back pain (M54.50) Active confirmed Vital Signs Heart Rate 76 /min 03/18/2025 Height-cm 152.4 cm 03/18/2025 Blood pressure diastolic 64 mm Hg 03/18/2025 Weight-kg 63.5 kg 03/18/2025 Height 5ft in 03/18/2025 Blood pressure systolic 165 mm Hg 03/18/2025 Weight 140 lbs 03/18/2025 BMI 27.34 kg/m2 03/18/2025 Encounters Encounter Location Date Provider Diagnosis [facility] [address] [place] [address] 07/24/2024 Anayeli Dill Right hip pain M25.551 ; Low back pain M54.50 ; Cervicalgia M54.2 and 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 Z79.899 [facility] [address] [place] [address] [address] [place] [address] 12/10/2024 Yoan Wu Right hip pain M25.551 ; Low back pain M54.50 ; Cervicalgia M54.2 and 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 Z79.899 [facility] [address] [place] [address] [address] [place] [address] 12/24/2024 Yoan Wu Right hip pain M25.551 ; Low back pain M54.50 ; Cervicalgia M54.2 and 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 Z79.899 [facility] [address] [place] [address] [address] [place] [address] 03/18/2025 Yoan Wu Right hip pain M25.551 ; Low back pain M54.50 ; Cervicalgia M54.2 and Other group home (current) drug therapy Z79.899 [facility] [address] [place] [address] [address] [place] [address] 07/24/2024 Berto Lea [facility] [address] [place] [address] [address] [place] [address] 04/21/2025 Shanna Lea Assessments Encounter Date Diagnosis (ICD Code) [...] and is aking as needed, UDS today 03/18/2025 Right hip pain (ICD-10 - M25.551) URINE DRUG SCREENING MEDICAL NECESSITY: [place] [...] opioid and medication therapies. Discussed potential for addiction/toleran ce/abuse/diversio n. Discussed Opioid Agreement in detail and answered [...] coordination of care required for this visit. We have reevaluated the patient using PMQ-R, CESD-R, and GPCOG assessments, based on data collected from the PMQ-R , we are evaluating the risk for abuse, misuse and diversion , Furthermore, we are screening the patient for depressing using CESD-R assessments, Lastly, we are utilizing GPCPG to ensure that the current treatment plan is not impairing cognition. Patient has low risk of medication misuse /abuse , patient has moderate risk of depression which needs to be monitor closely and consider psychologist /psychiatrist referral if no improvement , patient has low risk of impairing cognition . UDS today After discussing the benefit and risk/complication including but not limited bleeding, infection, nerve damage, allergic reaction, spinal fluid leak, paralysis, and of the Right hip intra-articular steroid injection under fluoroscopic guidance were discussed with the patient who verbalized understanding and agrees to proceed , the procedure was performed without any events, patient tolerated the procedure well. Patient will be followed as scheduled 03/18/2025 Low back pain (ICD-10 - M54.50) URINE DRUG SCREENING MEDICAL NECESSITY: [place] [...] opioid and medication therapies. Discussed potential for addiction/toleran ce/abuse/diversio n. Discussed Opioid Agreement in detail and answered [...] coordination of care required for this visit. We have reevaluated the patient using PMQ-R, CESD-R, and GPCOG assessments, based on data collected from the PMQ-R , we are evaluating the risk for abuse, misuse and diversion , Furthermore, we are screening the patient for depressing using CESD-R assessments, Lastly, we are utilizing GPCPG to ensure that the current treatment plan is not impairing cognition. Patient has low risk of medication misuse /abuse , patient has moderate risk of depression which needs to be monitor closely and consider psychologist /psychiatrist referral if no improvement , patient has low risk of impairing cognition . UDS today After discussing the benefit and risk/complication including but not limited bleeding, infection, nerve damage, allergic reaction, spinal fluid leak, paralysis, and of the Right hip intra-articular steroid injection under fluoroscopic guidance were discussed with the patient who verbalized understanding and agrees to proceed , the procedure was performed without any events, patient tolerated the procedure well. Patient will be followed as scheduled 07/24/2024 Cervicalgia (ICD-10 - M54.2) 12/24/2024 Low back pain (ICD-10 - M54.50) [...] . Patient will be followed as scheduled. 03/18/2025 Cervicalgia (ICD-10 - M54.2) URINE DRUG SCREENING MEDICAL NECESSITY: The [place] [...] opioid and medication therapies. Discussed potential for addiction/toleran ce/abuse/diversio n. Discussed Opioid Agreement in detail and answered [...] coordination of care required for this visit. We have reevaluated the patient using PMQ-R, CESD-R, and GPCOG assessments, based on data collected from the PMQ-R , we are evaluating the risk for abuse, misuse and diversion , Furthermore, we are screening the patient for depressing using CESD-R assessments, Lastly, we are utilizing GPCPG to ensure that the current treatment plan is not impairing cognition. Patient has low risk of medication misuse /abuse , patient has moderate risk of depression which needs to be monitor closely and consider psychologist /psychiatrist referral if no improvement , patient has low risk of impairing cognition . UDS today After discussing the benefit and risk/complication including but not limited bleeding, infection, nerve damage, allergic reaction, spinal fluid leak, paralysis, and of the Right hip intra-articular steroid injection under fluoroscopic guidance were discussed with the patient who verbalized understanding and agrees to proceed , the procedure was performed without any events, patient tolerated the procedure well. Patient will be followed as scheduled 07/24/2024 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 (ICD-10 - Z79.899) 03/18/2025 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 (ICD-10 - Z79.899) URINE DRUG SCREENING MEDICAL NECESSITY: The [place] [...] opioid and medication therapies. Discussed potential for addiction/toleran ce/abuse/diversio n. Discussed Opioid Agreement in detail and answered [...] coordination of care required for this visit. We have reevaluated the patient using PMQ-R, CESD-R, and GPCOG assessments, based on data collected from the PMQ-R , we are evaluating the risk for abuse, misuse and diversion , Furthermore, we are screening the patient for depressing using CESD-R assessments, Lastly, we are utilizing GPCPG to ensure that the current treatment plan is not impairing cognition. Patient has low risk of medication misuse /abuse , patient has moderate risk of depression which needs to be monitor closely and consider psychologist /psychiatrist referral if no improvement , patient has low risk of impairing cognition . UDS today After discussing the benefit and risk/complication including but not limited bleeding, infection, nerve damage, allergic reaction, spinal fluid leak, paralysis, and of the Right hip intra-articular steroid injection under fluoroscopic guidance were discussed with the patient who verbalized understanding and agrees to proceed , the procedure was performed without any events, patient tolerated the procedure well. Patient will be followed as scheduled 12/10/2024 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 (ICD-10 - Z79.899) After [...] will be followed as scheduled. 12/24/2024 Other group home (current) drug therapy (ICD-10 - Z79.899) We [...] and is aking as needed, UDS today 03/18/2025 Other High Blood Pressure: Care Instructions material was printed URINE DRUG SCREENING MEDICAL NECESSITY: The [place] [...] opioid and medication therapies. Discussed potential for addiction/toleran ce/abuse/diversio n. Discussed Opioid Agreement in detail and answered [...] coordination of care required for this visit. We have reevaluated the patient using PMQ-R, CESD-R, and GPCOG assessments, based on data collected from the PMQ-R , we are evaluating the risk for abuse, misuse and diversion , Furthermore, we are screening the patient for depressing using CESD-R assessments, Lastly, we are utilizing GPCPG to ensure that the current treatment plan is not impairing cognition. Patient has low risk of medication misuse /abuse , patient has moderate risk of depression which needs to be monitor closely and consider psychologist /psychiatrist referral if no improvement , patient has low risk of impairing cognition . UDS today After discussing the benefit and risk/complication including but not limited bleeding, infection, nerve damage, allergic reaction, spinal fluid leak, paralysis, and of the Right hip intra-articular steroid injection under fluoroscopic guidance were discussed with the patient who verbalized understanding and agrees to proceed , the procedure was performed without any events, patient tolerated the procedure well. Patient will be followed as scheduled Plan Of Treatment Pending Test Test Name Order Date EtS (Alcohol Metabolite) - Urine EtS (Alcohol Metabolite) - Urine 025 QMP Plus D/L - Urine 03/18/2025 QMP Plus D/L - Urine 12/24/2024 Synthetic Stimulants 03/18/2025 Synthetic Stimulants 12/24/2024 Patient Ombudsperson Benzodiazepines 12/24/2024 Patient Ombudsperson Benzodiazepines 03/18/2025 Synthetic Cannabinoids 03/18/2025 Synthetic Cannabinoids 12/24/2024 Patient Ombudsperson Opioids 12/24/2024 Patient Ombudsperson Opioids 03/18/2025 Hallucinogens/Dissociatives 12/24/2024 Hallucinogens/Dissociatives 03/18/2025 BUS ASSISTANT Other 03/18/2025 BUS ASSISTANT Other 12/24/2024 Marijuana - Urine 12/24/2024 Marijuana - Urine 03/18/2025 PainComp Medication Compliance - Urine 0 12/24/2024 PainComp Medication Compliance - Urine 0 03/18/2025 Aegis Required Information 03/18/2025 Aegis Required Information 12/24/2024 Insurance Providers Payer Name Payer Address Payer Phone Subscriber Number Group Number Insured Name Patient Relationship to Insured Coverage Start Date Coverage End Date [facility] [address] [address] [place] [address] [id number] Niya Hodgson Self - patient is the insured Medications Administered Medication Instructions Date of Administration Dosage Notes Hip Inj Intra-articular 12/10/2024 R IGHT HIP INJ Hip Inj Intra-articular 03/18/2025 R IGHT HIP INJ Medical (General) History Medical History History ICD Code Vitamin B12 deficiency PMO Vitamin D deficiency anemia labral tear right hip Hospitalization History Reason Date(Month/Year) no hospitalization since last visit
--- OUTSIDE RECORDS SUMMARY | 2025-06-17 10:54 | XMS_ITS | Clinical Summary ---
Author Organization [facility] Address [address] [place] [address] Care Team Providers Care Sap Hana Developer Name Role Phone Duane Sanches MD Primary Care Provider + [phone] Source Comments [facility],non-owned Affiliates and Associated Physician Practices is amultiple site organization consisting of ambulatory clinics and hospital sitesin [place], [place], [place] and [place]. This disclosure is being madepursuant to the Care Everywhere program and may not contain all information available regarding this patient. Last updated 18.[facility] Allergies Active Allergy Reactions Criticality Noted Date Comments Codeine Nausea and/or Vomiting 08/08/2019 Levofloxacin Nausea and/or Vomiting High 08/08/2019 Medications * Be aware that medications may not be up to date on this document. Alwaysverify current medications with the patient. gabapentin (NEURONTIN) 300 MG capsule Take 1 [...] fluticasone propionate (FLONASE) 50 MCG/ACT nasal spray [place] 3 sprays into each nostril once daily [...] 019 Frequency of Binge Drinking Never 07/29 Comments Unknown Sex and Gender Information Value Date Recorded Sex Assigned at Not on file Legal Sex Female 11:56 AM CDT Gender Identity Not on file [...] 75+ series) 2018 COVID-19 VACCINE (1 - season) 2024 DEPRESSION SCREENING 10/29/2024 INFLUENZA VACCINE (#1) 2025 8, 10/10/2017, 08/18/2016, Additional history exists HEPATITIS B VACCINE Aged Out No longe [...] on patient's age to complete this topic Insurance Care Teams Sap Hana Developer Relationship Specialty Start Date End Date Duane Sanches MD [phone] [address] PCP - General 08/01/19
[2025-06-17 11:04] LABS: Estimated Glomerular Filt Rate 53
== END 2025-06-17 10:26 | disposition home or self-care (01) ==
PROVIDERS: PCP Internal Medicine; Visit Provider Urology
DX: N28.89 Other specified disorders of kidney and ureter (principal)
CPT/HCPCS: 74178; Q9967